=== PATIENT | male | born 1965 | race Caucasian/White ===

== ENCOUNTER 2016-05-22 09:00 | Emergency (ER) | payer OTHER ==
[~2016-05-22] VITALS: Ht 180.3 cm; Wt 63.5 kg
[~2016-05-22 09:00] MED LIST: ALBU0.086 NEB; HYDR-3534 PO; IBUP800 PO; NEUR300C PO; SYMB160A INH; Z.0.OXYGEN INH
[2016-05-22 09:04] VITALS: PULSE 86; RESP 16; TEMP 98.3; O2SAT 96
[2016-05-22] MEDS ORDERED: diphenhydrAMINE HCL 50 MG/ML VIAL IVP ONE (09:15)
[2016-05-22] MEDS ORDERED: PROCHLORPERAZINE INJ 10 MG/2 ML VIAL IVP ONE (09:15)
[2016-05-22] MEDS ORDERED: SODIUM CHLORIDE 0.9% FLUSH 5 ML FLUSH IVF PRN (09:15)
--- NOTE | 2016-05-22 09:27 | RADHPO ---
EXAM DATE/TIME: 05/22/2016 09:19 [place] COMPARISON: CT BRAIN W/O CONTRAST, December 18, 2012, 1:13. INDICATIONS : Cephalgia. RADIATION DOSE: 63.13 CTDIvol (mGy) MEDICAL HISTORY : Seizures. Chronic obstructive pulmonary disease. SURGICAL HISTORY : None. ENCOUNTER: Initial ACUITY: 3 days PAIN SCALE: 8/10 LOCATION: cranial TECHNIQUE: Multiple contiguous axial images were obtained of the head. Using automated exposure control and adj ustment of the mA and/or kV according to patient size, radiation dose was kept as low as reasonably a chievable to obtain optimal diagnostic quality images. FINDINGS: CEREBRUM: The ventricles are normal for age. No evidence of midline shift, mass lesion, hemorrhage or acute in farction. No extra-axial fluid collections are seen. POSTERIOR FOSSA: The cerebellum and brainstem are intact. The 4th ventricle is midline. The cerebellopontine angle i s unremarkable. EXTRACRANIAL: The visualized portion of the orbits is intact. SKULL: The calvaria is intact. No evidence of skull fracture. CONCLUSION: Normal examination. Trinidad Stone MD on May 22, 2016 at 9:25 Board Certified Radiologist. This report was verified electronically.
--- NOTE | 2016-05-22 09:34 | PD ---
HPI . Headache Chief Complaint: Headache Time Seen by Provider: 09:09 Travel History International Travel<30 days: No Contact w/Intl Traveler<30days: No Traveled to known affect area: No History of Present Illness HPI Patient presents with a three-day history of headache. He describes it as a pressure in his head. He states it is associated with blurred vision. He further states that he has had some associated nausea and vomiting. There has been no fever. He has not taken anything for it prior to presentation. He notes no exacerbating or relieving factors. PFSH Past Medical History Arthritis: No Asthma: No Bipolar Disorder: Yes Anxiety: Yes Depression: Yes Heart Rhythm Problems: Yes Cancer: No Cardiovascular Problems: No COPD: Yes (Chronic bronchitis) Cerebrovascular Accident: No Diminished Hearing: No Endocrine: No Gastrointestinal Disorders: Yes GERD: No Genitourinary: No Headaches: No Hiatal Hernia: No Immune Disorder: No Implanted Vascular Access Dvce: No Musculoskeletal: Yes Neurologic: Yes (Neuropathy) Psychiatric: Yes (bipolar) Reproductive: No Respiratory: Yes (CHRONIC BRONCHITIS, COPD) Immunizations Current: Yes Migraines: No Schizophrenia: Yes Seizures: Yes Sleep Apnea: Yes Ulcer: No Tetanus Vaccination: < 5 Years Influenza Vaccination: No Past Surgical History Abdominal Surgery: No Cardiac Surgery: No Ear Surgery: No Endocrine Surgery: No Eye Surgery: No Genitourinary Surgery: No Gynecologic Surgery: No Neurologic Surgery: No Oral Surgery: No Thoracic Surgery: No Other Surgery: Yes Social History Alcohol Use: Yes (daily 2 beers) Tobacco Use: Yes (1/2 ppd) Substance Use: Yes (ALCOHOL) Allergies-Medications (Allergen,Severity, Reaction): Coded Allergies: Bees (Verified Allergy, Severe, Anaphylaxis, 05/22/16) Cat Dander (Verified Allergy, Severe, Anaphylaxis, 05/22/16) Flexeril (Verified Allergy, Severe, SWELLING, 05/22/16) Iodinated Contrast Media (Verified Allergy, Severe, Anaphylaxis, 05/22/16) Seafood (Verified Allergy, Severe, SWELLING, 05/22/16) Shellfish (Verified Allergy, Severe, SWELLS UP, 05/22/16) Codeine (Verified Allergy, Intermediate, RASH, 05/22/16) Reported Meds & Prescriptions Reported Meds & Active Scripts Active Reported [o2 at hs] Tramadol (Tramadol HCl) 50 Mg Tab 100 Mg PO TID PRN Lyrica (Pregabalin) 150 Mg Cap 150 Mg PO TID Trazodone (Trazodone HCl) 100 Mg Tab 100 Mg PO HS Albuterol Neb (Albuterol Sulfate) 2.5 Mg/3 Ml Neb 2.5 Mg NEB Q4HR NEB While awake Symbicort Inh (Budesonide/Formoterol Fumarate) 160-4.5 Mcg/Act Aero 2 Puff INH Q12HR Review of Systems Except as stated in HPI: all other systems reviewed are Neg General / Constitutional: No: Fever, Chills Eyes: Positive: Blurred Vision HENT: Positive: Headaches Gastrointestinal: Positive: Nausea, Vomiting Physical Exam Narrative GENERAL: This is a 50-year-old man who looks much older than his stated age. He is wearing bilateral cam boots. SKIN: Warm and dry. HEAD: Atraumatic. Normocephalic. Positive scalp tenderness. EYES: Pupils equal and round. ENT: No nasal bleeding or discharge. Mucous membranes pink and moist. NECK: Trachea midline. Neck is supple with full range of motion. CARDIOVASCULAR: Regular rate and rhythm. RESPIRATORY: No accessory muscle use. GASTROINTESTINAL: Abdomen soft, non-tender, nondistended. MUSCULOSKELETAL: No obvious deformities. No edema. NEUROLOGICAL: Awake and alert. No obvious cranial nerve deficits. Motor grossly within normal limits. Normal speech. PSYCHIATRIC: Appropriate mood and affect; insight and judgment normal. Data Data Last Documented VS Vital Signs Date Time Temp Pulse Resp B/P Pulse Ox O2 Delivery O2 Flow Rate FiO2 05/22/16 09:19 82 16 97 Room Air 05/22/16 09:[address] Brain W/O Iv Contrast(Rout) (05/22/16 09:09) Iv Access Insert/Monitor (05/22/16 09:09) Sodium Chloride 0.9% Flush (Ns Flush) (05/22/16 09:15) Prochlorperazine Inj (Compazine Inj) (05/22/16 09:15) Diphenhydramine Inj (Benadryl Inj) (05/22/16 09:15) MDM Medical Decision Making Medical Screen Exam Complete: Yes Emergency Medical Condition: Yes Differential Diagnosis Differential diagnosis of headache includes but is not limited to migraine, muscle contraction headache, brain tumor, brain bleed Narrative Course Patient presents for evaluation and treatment of headache associated with blurred vision and nausea. CT of his head is negative. His pain will be treated with Compazine and Benadryl. Headache is improved with Compazine and Benadryl. Diagnosis Primary Impression: Headache Qualified Code: G44.209 - Acute non intractable tension-type headache Scripts Budesonide-Formoterol Inh (Symbicort Inh)160-4.5 Mcg/Act Aero2 Puff INH Q12HR # 1 INHALER Ref 0 Prov:Tamiko Santiago MD 05/22/16 Disposition: DISCHARGE HOME Condition: Stable Tamiko Santiago MD May 22, 2016 09:34
[2016-05-22] MEDS ORDERED: ALBU0.08 NEB (09:43)
[2016-05-22] MEDS ORDERED: TRAZ100T4 PO (09:43)
[2016-05-22] MEDS ORDERED: LYRI150C PO (09:43)
[2016-05-22] MEDS ORDERED: TRAM50TA PO (09:43)
[2016-05-22] MEDS ORDERED: [UNRECOGNIZED DRUG - OTHER] (09:43)
[2016-05-22] MEDS ORDERED: SYMB160A INH ×2 (09:43→09:56)
[2016-05-22 10:51] VITALS: BP 110/72
== END 2016-05-22 10:52 | disposition home or self-care (01) ==
LOC: PHED 09:00
DX: R51 Headache (principal); J44.9 Chronic obstructive pulmonary disease, unspecified
CPT/HCPCS: 70450; 96374; 96375; 99284; J0780; J1200

== ENCOUNTER 2016-06-13 08:30 | Inpatient (IN) | payer OTHER ==
[~2016-06-13] VITALS: Ht 180.3 cm; Wt 67.0 kg
[~2016-06-13 08:30] MED LIST changes: +ALBU0.08 NEB; -ALBU0.086 NEB; -HYDR-3534 PO; -IBUP800 PO; +LYRI150C PO; -NEUR300C PO; +TRAM50TA PO; +TRAZ100T4 PO; -Z.0.OXYGEN INH; +[UNRECOGNIZED DRUG - OTHER]
[2016-06-13 08:38] VITALS: BP 111/70; PULSE 84; RESP 20; TEMP 99.3; O2SAT 97
[2016-06-13] MEDS ORDERED: TERBUTALINE INJ 1 MG/ML AMP SQ ONE (09:00)
[2016-06-13] MEDS ORDERED: LIDOCAINE HCL 1% 50 ML VIAL INFIL ONE (09:15)
[2016-06-13] MEDS ORDERED: PHENYLEPHRINE I-CAVITARY ONE ×2 (09:15)
[2016-06-13] MEDS ORDERED: SODIUM CHLORIDE 0.9% I-CAVITARY ONE ×2 (09:15)
[2016-06-13 09:58] VITALS: BP 116/69; PULSE 87; RESP 18; O2SAT 95
[2016-06-13] MEDS ORDERED: PROPOFOL 200 MG/20 ML AMP IV ONE (10:13)
[2016-06-13] MEDS ORDERED: ONDANSETRON HCL 4 MG/2 ML VIAL IV PUSH ONE ×2 (10:14→10:30)
[2016-06-13] MEDS ORDERED: chlordiazePOXIDE 25 MG CAP PO PRN (10:15)
--- NOTE | 2016-06-13 10:17 | PD ---
HPI Chief Complaint: Complaint Time Seen by Provider: 08:41 Travel History International Travel<30 days: No Contact w/Intl Traveler<30days: No Traveled to known affect area: No History of Present Illness HPI This 50-year-old male says he had an erection for 24 hours. Says he woke up and her actions yesterday and has been present ever since. It is painful. He does take trazodone and admits that his been somewhat erratic taking it. There is no history of trauma. He is confined to a wheelchair due to to severely shattered feet. He fell off scaffolding about 3 years ago. At that time he started to drink heavily and says he is an alcoholic. He's last drink was last night. PFSH Past Medical History Arthritis: No Asthma: No Bipolar Disorder: Yes Anxiety: Yes Depression: Yes Heart Rhythm Problems: Yes Cancer: No Cardiovascular Problems: No COPD: Yes (Chronic bronchitis) Cerebrovascular Accident: No Diminished Hearing: No Endocrine: No Gastrointestinal Disorders: Yes GERD: No Genitourinary: No Headaches: No Hiatal Hernia: No Immune Disorder: No Implanted Vascular Access Dvce: No Musculoskeletal: Yes Neurologic: Yes (Neuropathy) Psychiatric: Yes (bipolar) Reproductive: No Respiratory: Yes (CHRONIC BRONCHITIS, COPD) Immunizations Current: Yes Migraines: No Schizophrenia: Yes Seizures: Yes Sleep Apnea: Yes Ulcer: No Influenza Vaccination: No Past Surgical History Abdominal Surgery: No Cardiac Surgery: No Ear Surgery: No Endocrine Surgery: No Eye Surgery: No Genitourinary Surgery: No Gynecologic Surgery: No Neurologic Surgery: No Oral Surgery: No Thoracic Surgery: No Other Surgery: Yes Social History Alcohol Use: Yes (daily 2 beers) Tobacco Use: Yes (1/2 ppd) Substance Use: Yes (ALCOHOL) Allergies-Medications (Allergen,Severity, Reaction): Coded Allergies: Bees (Verified Allergy, Severe, Anaphylaxis, 06/13/16) Cat Dander (Verified Allergy, Severe, Anaphylaxis, 06/13/16) Flexeril (Verified Allergy, Severe, SWELLING, 06/13/16) Iodinated Contrast Media (Verified Allergy, Severe, Anaphylaxis, 06/13/16) Seafood (Verified Allergy, Severe, SWELLING, 06/13/16) Shellfish (Verified Allergy, Severe, SWELLS UP, 06/13/16) Codeine (Verified Allergy, Intermediate, RASH, 06/13/16) Reported Meds & Prescriptions Reported Meds & Active Scripts Active Symbicort Inh (Budesonide/Formoterol Fumarate) 160-4.5 Mcg/Act Aero 2 Puff INH Q12HR Reported [o2 at hs] Tramadol (Tramadol HCl) 50 Mg Tab 100 Mg PO TID PRN Lyrica (Pregabalin) 150 Mg Cap 150 Mg PO TID Trazodone (Trazodone HCl) 100 Mg Tab 100 Mg PO HS Albuterol Neb (Albuterol Sulfate) 2.5 Mg/3 Ml Neb 2.5 Mg NEB Q4HR NEB While awake Review of Systems General / Constitutional: No: Fever, Chills Eyes: No: Diploplia HENT: No: Headaches, Lightheadedness Cardiovascular: No: Chest Pain or Discomfort, Palpitations Respiratory: No: Cough, Shortness of Breath Gastrointestinal: No: Nausea, Vomiting Genitourinary: No: Urgency, Frequency Musculoskeletal: No: Myalgias Neurologic: Positive: Tremor Psychiatric: Positive: Substance Abuse Hematologic/Lymphatic: No: Easy Bruising Physical Exam Narrative GENERAL well-developed male SKIN: Warm and dry. HEAD: Atraumatic. Normocephalic. EYES: Pupils equal and round. No scleral icterus. No injection or drainage. ENT: No nasal bleeding or discharge. Mucous membranes pink and moist. NECK: Trachea midline. No JVD. CARDIOVASCULAR: Regular rate and rhythm. No murmur appreciated. RESPIRATORY: No accessory muscle use. Clear to auscultation. Breath sounds equal bilaterally. GASTROINTESTINAL: Abdomen soft, non-tender, nondistended. Hepatic and splenic margins not palpable. He does have an erection MUSCULOSKELETAL: No obvious deformities. No clubbing. No cyanosis. No edema. NEUROLOGICAL: Awake and alert. No obvious cranial nerve deficits. Motor grossly within normal limits. Normal speech. Slightly tremulous PSYCHIATRIC: Appropriate mood and affect; insight and judgment normal. Data Data Last Documented VS Vital Signs Date Time Temp Pulse Resp B/P Pulse Ox O2 Delivery O2 Flow Rate FiO2 06/13/16 11:15 18 06/13/16 09:58 87 116/69 95 Room Air 06/13/16 08:38 99.3 Orders Terbutaline Inj (Brethine Inj) (06/13/16 09:00) Lidocaine 1% Inj (50 Ml) (Xylocaine 1% I (06/13/16 09:15) Phenylephrine Inj (Neosynephrine Inj)... (06/13/16 09:15) Chlordiazepoxide (Librium) (06/13/16 10:15) Complete Blood Count With Diff (06/13/16 10:28) Comprehensive Metabolic Panel (06/13/16 10:28) Magnesium (Mg) (06/13/16 10:28) Sodium Chlor 0.9% 1000 Ml Inj (Ns 1000 M (06/13/16 10:30) Ondansetron Inj (Zofran Inj) (06/13/16 10:30) Hydromorphone Pf Inj (Dilaudid Pf Inj) (06/13/16 10:30) Prothrombin Time / Inr (Pt) (06/13/16 10:31) Act Partial Throm Time (Ptt) (06/13/16 10:31) Lorazepam Inj (Ativan Inj) (06/13/16 10:45) Admit Order (Ed Use Only) (06/13/16 11:37) Admit To Inpatient (06/13/16 ) Vital Signs (Adult) Q4H (06/13/16 11:36) Activity Oob Ad Caridad (06/13/16 11:36) Diet Npo (06/13/16 Lunch) Sodium Chlor 0.9% 1000 Ml Inj (Ns 1000 M (06/13/16 11:36) Sodium Chloride 0.9% Flush (Ns Flush) (06/13/16 11:45) Sodium Chloride 0.9% Flush (Ns Flush) (06/13/16 21:00) Acetaminophen (Tylenol) (06/13/16 11:45) Ondansetron Inj (Zofran Inj) (06/13/16 11:45) Magnesium Hydroxide Liq (Milk Of Magnesi (06/13/16 11:45) Scd Bilateral/Knee High NAZARIO.BID (06/13/16 11:36) Acetamin-Hydrocod 325-5 Mg ([place] 5-325 (06/13/16 11:45) Morphine Inj (Morphine Inj) (06/13/16 11:45) Naloxone Inj (Narcan Inj) (06/13/16 11:45) Alcohol Withdrawal Asmt-Ciwa Q4HX18 (06/13/16 11:36) Flumazenil Inj (Romazicon Inj) (06/13/16 11:45) Lorazepam (Ativan) (06/13/16 11:45) Lorazepam Inj (Ativan Inj) (06/13/16 11:45) Lorazepam (Ativan) (06/13/16 11:45) Lorazepam Inj (Ativan Inj) (06/13/16 11:45) Lorazepam Inj (Ativan Inj) (06/13/16 11:45) Lorazepam Inj (Ativan Inj) (06/13/16 11:45) Inpatient Certification (06/13/16 ) Consult Urology (06/13/16 ) Labs Laboratory Tests Test 06/13/16 10:30 White Blood Count 5.1 TH/MM3 Red Blood Count 4.34 MIL/MM3 Hemoglobin 14.0 GM/DL Hematocrit 41.8 % Mean Corpuscular Volume 96.3 FL Mean Corpuscular Hemoglobin 32.2 PG Mean Corpuscular Hemoglobin 33.4 % Concent Red Cell Distribution Width 13.9 % Platelet Count 116 TH/MM3 Mean Platelet Volume 7.6 FL Neutrophils (%) (Auto) 71.5 % Lymphocytes (%) (Auto) 18.9 % Monocytes (%) (Auto) 6.8 % Eosinophils (%) (Auto) 1.6 % Basophils (%) (Auto) 1.2 % Neutrophils # (Auto) 3.6 TH/MM3 Lymphocytes # (Auto) 1.0 TH/MM3 Monocytes # (Auto) 0.3 TH/MM3 Eosinophils # (Auto) 0.1 TH/MM3 Basophils # (Auto) 0.1 TH/MM3 CBC Comment DIFF FINAL Differential Comment Prothrombin Time 10.9 SEC Prothromb Time International 1.0 RATIO Ratio Activated Partial 30.9 SEC Thromboplast Time Sodium Level 141 MEQ/L Potassium Level 3.4 MEQ/L Chloride Level 104 MEQ/L Carbon Dioxide Level 26.6 MEQ/L Anion Gap 10 MEQ/L Blood Urea Nitrogen 7 MG/DL Creatinine 0.65 MG/DL Estimat Glomerular Filtration 131 ML/MIN Rate Random Glucose 98 MG/DL Calcium Level 8.1 MG/DL Magnesium Level 1.7 MG/DL Total Bilirubin 0.6 MG/DL Aspartate Amino Transf 77 U/L (AST/SGOT) Alanine Aminotransferase 51 U/L (ALT/SGPT) Alkaline Phosphatase 64 U/L Total Protein 8.2 GM/DL Albumin 3.2 GM/DL MDM Medical Decision Making Medical Screen Exam Complete: Yes Emergency Medical Condition: Yes Medical Record Reviewed: Yes Differential Diagnosis Differential includes priapism, alcohol withdrawal Narrative Course Bilateral intracavernosal injections were performed and phenylephrine 10 mL injected. There was no response. I spoken with Dr. Pearce and he asked that the patient be transferred to [facility] Procedures Procedure Narrative After verbal consent was obtained 20-gauge butterfly needles were inserted corpora cavernosum bilaterally. Dark blood was aspirated. A total of 10 MLS of 500 g per mL was injected. Diagnosis Primary Impression: Priapism Admitting Information Admitting Physician Requests: Admit Javier Carson MD Jun 13, 2016 10:17
[2016-06-13] MEDS ORDERED: HYDROmorphone HCL PF 1 MG/ML VIAL IV PUSH ONE (10:30)
[2016-06-13] MEDS ORDERED: SODIUM CHLOR 0.9% 1000 ML INJ 1,000 ML IV SCH (10:30)
[2016-06-13 10:45] LABS: AUTOMATED NEUTROPHIL # 3.6 TH/MM3 (1.8-7.7); BASOPHIL # 0.1 TH/MM3 (0-0.2); BASOPHIL % 1.2 % (0.0-2.0); EOSINOPHIL # 0.1 TH/MM3 (0-0.4); EOSINOPHIL % 1.6 % (0.0-4.0); HEMATOCRIT 41.8 % (39.0-51.0); LYMPH % 18.9 % (9.0-44.0); MEAN CELL VOLUME 96.3 FL (80.0-100.0); MEAN CORPUSCULAR HEMOGLOBIN 32.2 PG (27.0-34.0); MEAN CORPUSCULAR HGB CONC 33.4 % (32.0-36.0); MONO % 6.8 % (0.0-8.0); NEUT % 71.5 % (16.0-70.0); PLATELET COUNT 116 TH/MM3 (150-450); RED BLOOD COUNT 4.34 MIL/MM3 (4.50-5.90); RED CELL DISTRIBUTION WIDTH 13.9 % (11.6-17.2); WHITE BLOOD COUNT 5.1 TH/MM3 (4.0-11.0)
[2016-06-13] MEDS ORDERED: LORazepam 2 MG/ML VIAL IV PUSH ONE (10:45)
[2016-06-13 10:48] LABS: HEMO FLAGS DIFF FINAL
[2016-06-13 10:54] LABS: CHLORIDE 104 MEQ/L (98-107); POTASSIUM 3.4 MEQ/L (3.5-5.1); SODIUM (NA) 141 MEQ/L (136-145)
[2016-06-13 10:58] LABS: APTT (PATIENT) 30.9 SEC (24.3-30.1); PROTHROMBIN TIME - PATIENT 10.9 SEC (9.8-11.6)
[2016-06-13 10:59] LABS: ANION GAP 10 MEQ/L (5-15); BICARBONATE 26.6 MEQ/L (21.0-32.0); BLOOD UREA NITROGEN 7 MG/DL (7-18); MAGNESIUM 1.7 MG/DL (1.5-2.5)
[2016-06-13 11:02] LABS: ALT (GPT) 51 U/L (12-78); AST (GOT) 77 U/L (15-37); GLOMERULAR FILTRATION RATE 131 ML/MIN (>89)
[2016-06-13 11:03] LABS: TOTAL BILIRUBIN ADULT 0.6 MG/DL (0.2-1.0)
[2016-06-13 11:04] LABS: ALKALINE PHOSPHATASE 64 U/L (45-117)
[2016-06-13] MEDS ORDERED: SODIUM CHLORIDE 0.9% FLUSH 5 ML FLUSH FLUSH PRN (11:45)
[2016-06-13] MEDS ORDERED: ACETAMINOPHEN 325 MG TAB PO PRN (11:45)
[2016-06-13] MEDS ORDERED: LORazepam 2 MG TAB PO PRN (11:45)
[2016-06-13] MEDS ORDERED: LORazepam 2 MG/ML VIAL IV PUSH PRN ×4 (11:45)
[2016-06-13] MEDS ORDERED: ACETAMINOPHEN/HYDROcodone 325 MG/5 MG TAB PO PRN (11:45)
[2016-06-13] MEDS ORDERED: MAGNESIUM HYDROXIDE SUSP 30 ML CUP PO PRN (11:45)
[2016-06-13] MEDS ORDERED: NALOXONE HCL 0.4 MG/ML AMP IV PRN (11:45)
[2016-06-13] MEDS ORDERED: LORazepam 1 MG TAB PO PRN (11:45)
[2016-06-13] MEDS ORDERED: FLUMAZENIL 0.5 MG/5 ML VIAL IV PUSH PRN (11:45)
[2016-06-13] MEDS ORDERED: ONDANSETRON HCL 4 MG/2 ML VIAL IVP PRN (11:45)
[2016-06-13] MEDS: SODIUM CHLOR 0.9% 1000 ML INJ 1,000 ML IV SCH ×2 (12:28→20:38)
[2016-06-13] MEDS ORDERED: chlordiazePOXIDE 25 MG CAP PO ONE (12:45)
[2016-06-13 13:41] VITALS: BP 103/60; PULSE 74; RESP 16; O2SAT 97
[2016-06-13] MEDS: MORPHINE SULFATE 4 MG/ML INJ IV PRN ×2 (14:59→20:38)
[2016-06-13 15:49] VITALS: BP 109/68; PULSE 72; RESP 16; O2SAT 98
--- NOTE | 2016-06-13 15:58 | HHI.HP ---
[facility] Hospitalists Primary Care Physician No Primary Care Physician Admission Diagnosis PRIAPISM Diagnoses: (1) Priapism (2) Alcohol withdrawal Travel History International Travel<30 Days: No Contact w/Intl Traveler <30 Da: No Traveled to Known Affected Are: No History of Present Illness This is a pleasant 50 year-old female who presents with a 24-hour history of painful erection beginning yesterday. The patient states that he does take trazodone sporadically. He denies taking any Viagra. The patient also drinks beer heavily and states that he starting to feel shaky and like he is withdrawing. He denies history of alcohol hallucinosis or delirium tremens. In the ER the emergency department physician did perform bilateral antral cavernosal injections of phenylephrine however this was unsuccessful in treating the priapism. Therefore Dr. Carson spoke with the urologist litigation paralegal Dr. Pearce who requested that the patient be transferred to [facility] at the main campus and admitted to the hospitalist medically with consultation to him. The patient currently still has the painful erection. He has received Librium and states that the alcohol withdrawal tremors are improving. Review of Systems Constitutional: DENIES: Fever, Chills Ears, nose, mouth, throat: DENIES: Throat pain, Hoarseness Respiratory: COMPLAINS OF: Cough, DENIES: Shortness of breath Cardiovascular: DENIES: Chest pain, Palpitations Gastrointestinal: DENIES: Nausea, Vomiting Genitourinary: DENIES: Urgency, Dysuria Musculoskeletal: DENIES: Joint Swelling, Back pain Neurologic: DENIES: Abnormal gait, Headache Psychiatric: DENIES: Anxiety, Confusion Past Family Social History Past Medical History Chronic pain and bilateral lower extremity after falling off a scaffolding 3 years ago and he wears bilateral walking boots for this Alcoholism Insomnia COPD Reported Medications Allergies Coded Allergies Type Severity Reaction Last Updated Verified Bees Allergy Severe Anaphylaxis 06/13/16 Yes Cat Dander Allergy Severe Anaphylaxis 06/13/16 Yes Flexeril Allergy Severe SWELLING 06/13/16 Yes Iodinated Contrast Media Allergy Severe Anaphylaxis 06/13/16 Yes Seafood Allergy Severe SWELLING 06/13/16 Yes Shellfish Allergy Severe SWELLS UP 06/13/16 Yes Codeine Allergy Intermediate RASH 06/13/16 Yes Active Scripts Medications Dose Route/Sig Days Date Category Dose Instructions Symbicort Inh (Budesonide/Formoterol Fumarate) 160-4.5 Mcg/Act Aero 2 Puff INH Q12HR 05/22/16 Rx [o2 at hs] 05/22/16 Reported Tramadol (Tramadol HCl) 50 Mg Tab 100 Mg PO TID PRN 05/22/16 Reported Lyrica (Pregabalin) 150 Mg Cap 150 Mg PO TID 05/22/16 Reported Trazodone (Trazodone HCl) 100 Mg Tab 100 Mg PO HS 05/22/16 Reported Albuterol Neb (Albuterol Sulfate) 2.5 Mg/3 Ml Neb 2.5 Mg NEB Q4HR NEB 05/22/16 Reported While awake Allergies: Coded Allergies: Bees (Verified Allergy, Severe, Anaphylaxis, 06/13/16) Cat Dander (Verified Allergy, Severe, Anaphylaxis, 06/13/16) Flexeril (Verified Allergy, Severe, SWELLING, 06/13/16) Iodinated Contrast Media (Verified Allergy, Severe, Anaphylaxis, 06/13/16) Seafood (Verified Allergy, Severe, SWELLING, 06/13/16) Shellfish (Verified Allergy, Severe, SWELLS UP, 06/13/16) Codeine (Verified Allergy, Intermediate, RASH, 06/13/16) Family History Reviewed and noncontributory Social History He does smoke tobacco and drinks heavily. Physical Exam Vital Signs Vital Signs Date Time Temp Pulse Resp B/P Pulse Ox O2 Delivery O2 Flow Rate FiO2 06/13/16 15:49 72 16 109/68 98 Room Air 06/13/16 15:26 16 06/13/16 13:41 74 16 103/60 97 Room Air 06/13/16 11:15 18 06/13/16 09:58 87 18 116/69 95 Room Air 06/13/16 08:38 99.3 84 20 111/70 97 Physical Exam GENERAL: Well-nourished, well-developed very pleasant lean middle-aged male patient. SKIN: Warm and dry. HEAD: Normocephalic. EYES: No scleral icterus. No injection or drainage. NECK: Supple, trachea midline. No JVD or lymphadenopathy. CARDIOVASCULAR: Regular rate and rhythm without murmurs, gallops, or rubs. RESPIRATORY: Breath sounds equal bilaterally. No accessory muscle use. GASTROINTESTINAL: Abdomen soft, non-tender, nondistended. Urogenital: He does have an erection, the penis and scrotum is normal in color. EXTREMITIES: No cyanosis, or edema. Feet have walking boots bilaterally. NEUROLOGICAL: Awake, alert, and oriented x 3. Non-focal. He does have fine tremors of the upper extremities. Laboratory Laboratory Tests Test 06/13/16 10:30 White Blood Count 5.1 Red Blood Count 4.34 Hemoglobin 14.0 Hematocrit 41.8 Mean Corpuscular Volume 96.3 Mean Corpuscular Hemoglobin 32.2 Mean Corpuscular Hemoglobin 33.4 Concent Red Cell Distribution Width 13.9 Platelet Count 116 Mean Platelet Volume 7.6 Neutrophils (%) (Auto) 71.5 Lymphocytes (%) (Auto) 18.9 Monocytes (%) (Auto) 6.8 Eosinophils (%) (Auto) 1.6 Basophils (%) (Auto) 1.2 Neutrophils # (Auto) 3.6 Lymphocytes # (Auto) 1.0 Monocytes # (Auto) 0.3 Eosinophils # (Auto) 0.1 Basophils # (Auto) 0.1 CBC Comment DIFF FINAL Differential Comment Prothrombin Time 10.9 Prothromb Time International 1.0 Ratio Activated Partial 30.9 Thromboplast Time Sodium Level 141 Potassium Level 3.4 Chloride Level 104 Carbon Dioxide Level 26.6 Anion Gap 10 Blood Urea Nitrogen 7 Creatinine 0.65 Estimat Glomerular Filtration 131 Rate Random Glucose 98 Calcium Level 8.1 Magnesium Level 1.7 Total Bilirubin 0.6 Aspartate Amino Transf 77 (AST/SGOT) Alanine Aminotransferase 51 (ALT/SGPT) Alkaline Phosphatase 64 Total Protein 8.2 Albumin 3.2 Result Diagram: 06/13/16 1030 06/13/16 1030 Assessment and Plan Assessment and Plan -Priapism - due to trazodone. The patient was advised to discontinue it and he states he has already had his girlfriend fell it away. Unfortunately he did not respond to bilateral cavernosum injection with phenylephrine in the emergency department therefore the patient is being transferred to the [facility] for definitive treatment by urology/Dr. Pearce. We'll continue with pain control. -Mild alcohol withdrawal. We'll continue with the CIWA protocol. -Tobaccoism. Counseled on cessation -Chronic pain. Resume home medications. -DVT prophylaxis to be initiated post surgery. Cannot place SCDs as the patient has bilateral boots on his ankles. Joy Colmenares MD Jun 13, 2016 15:58
--- NOTE | 2016-06-13 18:00 | PD.CONS ---
HPI Service Urology Consult Requested By Reason for Consult Priapism Primary Care Physician No Primary Care Physician Diagnosis: (1) Priapism ICD Code: N48.30 (2) Alcohol withdrawal ICD Code: F10.239 History of Present Illness 50-year-old gentleman with history bipolar disorder managed with trazodone who presented to the emergency room earlier this morning complaining of an erection that has been present for 24 hours. Preliminary management in the emergency room included intracorporeal injection of 500 g phenylephrine without resolution. Patient was advised transfer to the main hospital for further care in the operating room. At the time of consultation the patient continued to have ongoing erection which was quite painful. He denies any prior episodes of priapism. No history of blood disorders. I discussed corporal irrigation and repeat phenylephrine injection under anesthesia. Review of Systems Constitutional: DENIES: Fever, Chills Endocrine: DENIES: Polyuria Respiratory: DENIES: Cough Cardiovascular: DENIES: Chest pain Gastrointestinal: DENIES: Abdominal pain Musculoskeletal: DENIES: Back pain Hematologic/lymphatic: DENIES: Bruising Neurologic: DENIES: Headache Past Family Social History Past Medical History Bipolar disorder Chronic bronchitis COPD Neuropathy Trauma to both feet and is wheelchair-bound Past Surgical History Denies major surgery Reported Medications Refer to EMR Allergies: Coded Allergies: Bees (Verified Allergy, Severe, Anaphylaxis, 06/13/16) Cat Dander (Verified Allergy, Severe, Anaphylaxis, 06/13/16) Flexeril (Verified Allergy, Severe, SWELLING, 06/13/16) Iodinated Contrast Media (Verified Allergy, Severe, Anaphylaxis, 06/13/16) Seafood (Verified Allergy, Severe, SWELLING, 06/13/16) Shellfish (Verified Allergy, Severe, SWELLS UP, 06/13/16) Codeine (Verified Allergy, Intermediate, RASH, 06/13/16) Active Ordered Medications Refer to EMR Family History Reviewed and noncontributory Social History Alcohol consumption of 2 beers daily Smoker of one half pack per day Physical Exam Vital Signs Vital Signs Date Time Temp Pulse Resp B/P Pulse Ox O2 Delivery O2 Flow Rate FiO2 06/13/16 15:49 72 16 109/68 98 Room Air 06/13/16 15:26 16 06/13/16 13:41 74 16 103/60 97 Room Air 06/13/16 11:15 18 06/13/16 09:58 87 18 116/69 95 Room Air 06/13/16 08:38 99.3 84 20 111/70 97 Physical Exam GENERAL: This is a well-nourished, well-developed patient, in no apparent distress. SKIN: No rashes, ecchymoses or lesions. Cool and dry. HEAD: Atraumatic. Normocephalic. No temporal or scalp tenderness. EYES: Pupils equal round and reactive. Extraocular motions intact. No scleral icterus. No injection or drainage. ENT: Nose without bleeding, purulent drainage or septal hematoma. Throat without erythema, tonsillar hypertrophy or exudate. Uvula midline. Airway patent. NECK: Trachea midline. No JVD or lymphadenopathy. Supple, nontender, no meningeal signs. GASTROINTESTINAL: Abdomen soft, non-tender, nondistended. No hepato-splenomegaly , or palpable masses. No guarding. : Erect phallus, testes bilaterally descended MUSCULOSKELETAL: Extremities without clubbing, cyanosis, or edema. No joint tenderness, effusion, or edema noted. No calf tenderness. Negative Homans sign bilaterally. NEUROLOGICAL: Awake and alert. Cranial nerves II through XII intact. Motor and sensory grossly within normal limits. Five out of 5 muscle strength in all muscle groups. Normal speech. Laboratory Laboratory Tests Test 06/13/16 10:30 White Blood Count 5.1 Red Blood Count 4.34 Hemoglobin 14.0 Hematocrit 41.8 Mean Corpuscular Volume 96.3 Mean Corpuscular Hemoglobin 32.2 Mean Corpuscular Hemoglobin 33.4 Concent Red Cell Distribution Width 13.9 Platelet Count 116 Mean Platelet Volume 7.6 Neutrophils (%) (Auto) 71.5 Lymphocytes (%) (Auto) 18.9 Monocytes (%) (Auto) 6.8 Eosinophils (%) (Auto) 1.6 Basophils (%) (Auto) 1.2 Neutrophils # (Auto) 3.6 Lymphocytes # (Auto) 1.0 Monocytes # (Auto) 0.3 Eosinophils # (Auto) 0.1 Basophils # (Auto) 0.1 CBC Comment DIFF FINAL Differential Comment Prothrombin Time 10.9 Prothromb Time International 1.0 Ratio Activated Partial 30.9 Thromboplast Time Sodium Level 141 Potassium Level 3.4 Chloride Level 104 Carbon Dioxide Level 26.6 Anion Gap 10 Blood Urea Nitrogen 7 Creatinine 0.65 Estimat Glomerular Filtration 131 Rate Random Glucose 98 Calcium Level 8.1 Magnesium Level 1.7 Total Bilirubin 0.6 Aspartate Amino Transf 77 (AST/SGOT) Alanine Aminotransferase 51 (ALT/SGPT) Alkaline Phosphatase 64 Total Protein 8.2 Albumin 3.2 Result Diagram: 06/13/16 1030 06/13/16 1030 Assessment and Plan Assessment and Plan Urologic impression: Priapism greater than 24 hours refractory to preliminary management with phenylephrine in the emergency room. Plan: #1 keep patient nothing by mouth #2 bring patient to the operating room suite for vigorous corporeal irrigation under anesthesia and possible repeat injection of phenylephrine Sunny Bright MD Jun 13, 2016 18:00
[2016-06-13] MEDS ORDERED: DO NOT ADM ANY ANTICOAGULANT DRUGS XX PRN (18:58)
[2016-06-13] MEDS ORDERED: PHENYLEPH/NS 1000 MCG/10 ML SYR OTHER ONE (19:10)
--- NOTE | 2016-06-13 19:32 | HHI.PR ---
Immediate Post Op Note Procedure Date: Jun 13, 2016 Pre Op Diagnosis: (1) Priapism Post Op Diagnosis: (1) Priapism Surgeon: Sunny Bright Career Agent(s): None Procedure: Corporeal irrigation and injection of phenylephrine Additional Information: Patient was brought to the operating room suite and placed supine on the OR table. He was next placed under general anesthesia. He was then prepped and draped in normal sterile fashion. After an appropriate timeout was taken by proceeded with irrigation of the right corporal body with 20 cc normal saline. I then evacuated approximately 20 cc of bloody thick fluid. Subsequent to this I injected 200 g of phenylephrine. There was prompt detumescence noted. Then placed a sterile dressing over the irrigation site consisting of sterile gauze wrapped with Coban. The patient tolerated the procedures well and was transferred to the PACU in satisfactory condition. Complications: None Specimen(s) removed: None Estimated blood loss: 20 cc Anesthesia: LMA Drains: None Patient to: PACU Patient Condition: Good Date/Time of Procedure: SEE SURGICAL CARE RECORD Sunny Bright MD Jun 13, 2016 19:32
[2016-06-13] MEDS ORDERED: MIDAZOLAM HCL 2 MG/2 ML VIAL ONE (19:33)
[2016-06-13 20:00] VITALS: BP 149/85; PULSE 63; RESP 19; TEMP 97; O2SAT 97
[2016-06-13] MEDS: SODIUM CHLORIDE 0.9% FLUSH 5 ML FLUSH FLUSH SCH (20:38)
[2016-06-14] VITALS: BP 113/59; PULSE 75; RESP 20; TEMP 98.2; O2SAT 98
[2016-06-14 04:00] VITALS: BP 114/63; PULSE 71; RESP 20; TEMP 98.7; O2SAT 98
[2016-06-14] MEDS: SODIUM CHLOR 0.9% 1000 ML INJ 1,000 ML IV SCH (07:36)
[2016-06-14 08:00] VITALS: BP 134/74; PULSE 55; RESP 17; TEMP 97.7; O2SAT 96
[2016-06-14] MEDS: SODIUM CHLORIDE 0.9% FLUSH 5 ML FLUSH FLUSH SCH (08:43)
--- NOTE | 2016-06-14 09:10 | HHI.PR ---
Subjective Remarks Follow-up for priapism Patient status post irrigation and injection of phenylephrine yesterday. Today , his penis is more flaccid but still moderately erect, pain is better with oral narcotics. Afebrile, no chills. No nausea, vomiting or abdominal pain. Objective Vitals Vital Signs Date Time Temp Pulse Resp B/P Pulse Ox O2 Delivery O2 Flow Rate FiO2 06/14/16 08:00 97.7 55 17 134/74 96 06/14/16 04:00 98.7 71 20 114/63 98 06/14/16 00:00 98.2 75 20 113/59 98 06/13/16 20:00 97.0 63 19 149/85 97 06/13/16 19:59 63 17 130/83 98 Room Air 06/13/16 19:45 65 17 117/58 98 Room Air 06/13/16 19:26 98.3 76 15 110/69 99 Nasal Cannula 3 06/13/16 15:49 72 16 109/68 98 Room Air 06/13/16 15:26 16 06/13/16 13:41 74 16 103/60 97 Room Air 06/13/16 11:15 18 06/13/16 09:58 87 18 116/69 95 Room Air I/O 06/13/16 06/13/16 06/13/16 06/14/16 06/14/16 06/14/16 07:00 15:00 23:00 07:00 15:00 23:00 Intake Total 1210 ml 240 ml Output Total 0 ml 1000 ml Balance 1210 ml -760 ml Intake Oral 360 ml 240 ml IV Total 50 ml Other 800 ml Output Urine Total 0 ml 1000 ml # Bowel Movements 0 0 Result Diagram: 06/13/16 1030 06/13/16 1030 Objective Remarks GENERAL: Well-nourished, well-developed very pleasant lean middle-aged male patient. SKIN: Warm and dry. HEAD: Normocephalic. EYES: No scleral icterus. No injection or drainage. NECK: Supple, trachea midline. No JVD or lymphadenopathy. CARDIOVASCULAR: Regular rate and rhythm without murmurs, gallops, or rubs. RESPIRATORY: Breath sounds equal bilaterally. No accessory muscle use. GASTROINTESTINAL: Abdomen soft, non-tender, nondistended. Urogenital: Moderate erection, nontender, penis and scrotum normal in color. Dressings in place. EXTREMITIES: No cyanosis, or edema. Feet have walking boots bilaterally. NEUROLOGICAL: Awake, alert, and oriented x 3. Non-focal. He does have fine tremors of the upper extremities. Procedures Status post intracorporeal phenylephrine injection. A/P Problem List: (1) Priapism ICD Code: N48.30 Status: Acute (2) Alcohol withdrawal ICD Code: F10.239 Status: Acute Assessment and Plan -Priapism - possibly due to trazodone. Patient has been taking it though for 4 years. Unfortunately he did not respond to bilateral cavernosum injection with phenylephrine in the emergency department, urology was consulted, status post irrigation and corporeal injection of phenylephrine, now better. Continue pain control with oral narcotics. Still with moderate erection. Awaiting urology input. -Mild alcohol withdrawal. We'll continue with the [facility] protocol. -Tobaccoism. Counseled on cessation -Chronic pain. Resume home medications. -DVT prophylaxis to be initiated post surgery. Cannot place SCDs as the patient has bilateral boots on his ankles. Sapna Sawant MD Jun 14, 2016 09:10
[2016-06-14] MEDS ORDERED: HYDR-3516 PO (09:13)
[2016-06-14] MEDS ORDERED: POTASSIUM CHLORIDE 10 MEQ CONTROLLED RELEASE TAB PO ONE (09:15)
--- NOTE | 2016-06-14 09:15 | HHI.DS ---
Discharge Summary Admission Date Jun 13, 2016 at 11:39 Discharge Date: Jun 14, 2016 Admitting Diagnosis PRIAPISM (1) Priapism ICD Code: N48.30 (2) Alcohol withdrawal ICD Code: F10.239 Procedures Status post intracorporeal phenylephrine injection. Brief History - From Admission This is a pleasant 50 year-old female who presents with a 24-hour history of painful erection beginning yesterday. The patient states that he does take trazodone sporadically. He denies taking any Viagra. The patient also drinks beer heavily and states that he starting to feel shaky and like he is withdrawing. He denies history of alcohol hallucinosis or delirium tremens. In the ER the emergency department physician did perform bilateral antral cavernosal injections of phenylephrine however this was unsuccessful in treating the priapism. Therefore Dr. Carson spoke with the urologist senior functional analyst Dr. Pearce who requested that the patient be transferred to [facility] the [facility] and admitted to the hospitalist medically with consultation to him. The patient currently still has the painful erection. He has received Librium and states that the alcohol withdrawal tremors are improving. CBC/BMP: 06/13/16 1030 06/13/16 1030 Significant Findings Laboratory Tests Test 06/13/16 10:30 Red Blood Count 4.34 MIL/MM3 (4.50-5.90) Platelet Count 116 TH/MM3 (150-450) Neutrophils (%) (Auto) 71.5 % (16.0-70.0) Activated Partial 30.9 SEC Thromboplast Time (24.3-30.1) Potassium Level 3.4 MEQ/L (3.5-5.1) Calcium Level 8.1 MG/DL (8.5-10.1) Aspartate Amino Transf 77 U/L (15-37) (AST/SGOT) Albumin 3.2 GM/DL (3.4-5.0) PE at Discharge GENERAL: Well-nourished, well-developed very pleasant lean middle-aged male patient. SKIN: Warm and dry. HEAD: Normocephalic. EYES: No scleral icterus. No injection or drainage. NECK: Supple, trachea midline. No JVD or lymphadenopathy. CARDIOVASCULAR: Regular rate and rhythm without murmurs, gallops, or rubs. RESPIRATORY: Breath sounds equal bilaterally. No accessory muscle use. GASTROINTESTINAL: Abdomen soft, non-tender, nondistended. Urogenital: Moderate erection, nontender, penis and scrotum normal in color. Dressings in place. EXTREMITIES: No cyanosis, or edema. Feet have walking boots bilaterally. NEUROLOGICAL: Awake, alert, and oriented x 3. Non-focal. He does have fine tremors of the upper extremities. Hospital Course This is a 50-year-old male with history of alcohol abuse who presented to the hospital with a painful erection. Patient was diagnosed of priapism possibly secondary to trazodone. Unfortunately he did not respond to bilateral cavernosum injection with phenylephrine in the emergency department, urology was consulted, status post irrigation and corporeal injection of phenylephrine, now better. Continue pain control with oral narcotics. Discussed with urology part of discharge, continue ice pack as needed and remove dressing tomorrow. Continue oral narcotics for pain. Patient cleared for discharge home. Pt Condition on Discharge: Good Discharge Disposition: Discharge Home Discharge Time: > 30 minutes Discharge Instructions DIET: Follow Instructions for: As Tolerated, No Restrictions Activities you can perform: Regular-No Restrictions Follow up Referrals: PCP Follow-up - 1 Week New Medications: Hydrocodone-Acetaminophen (Hydrocodone-Acetaminophen) 5-325 mg Tab 1 TAB PO Q4H PRN PAIN SCALE 3 TO 5 #10 TAB Continued Medications: Albuterol Neb (Albuterol Neb) 2.5 Mg/3 Ml Neb 2.5 MG NEB Q4HR NEB While awake Breathing Treatment #60 Ref 0 NEBULE Budesonide-Formoterol Inh (Symbicort Inh) 160-4.5 Mcg/Act Aero 2 PUFF INH Q12HR #1 Ref 0 INHALER Pregabalin (Lyrica) 150 Mg Cap 150 MG PO TID #90 Ref 0 CAP Tramadol (Tramadol) 50 Mg Tab 100 MG PO TID PRN PAIN Ref 0 TAB ([o2 at hs]) Discontinued Medications: Trazodone (Trazodone) 100 Mg Tab 100 MG PO HS Control Depression #30 Ref 0 TAB Sapna Sawant MD Jun 14, 2016 09:15
== END 2016-06-14 10:55 | disposition home or self-care (01) | DRG 729 ==
LOC: PHED 08:30 → PHEDA 11:39 → N07B 17:34
PROVIDERS: ADMIT Hospitalist; ATTEND Hospitalist
PROC: 3E0N3GC Introduction of Other Therapeutic Substance into Male Reproductive, Percutaneous Approach (ICD-10-PCS; principal; 2016-06-13 18:48)
DX: N48.30 Priapism, unspecified (principal); F10.239 Alcohol dependence with withdrawal, unspecified; G62.9 Polyneuropathy, unspecified; J44.9 Chronic obstructive pulmonary disease, unspecified; F17.210 Nicotine dependence, cigarettes, uncomplicated; T43.215A Adverse effect of selective serotonin and norepinephrine reuptake inhibitors, initial encounter
CPT/HCPCS: 80053; 83735; 85025; 85610; 85730; 96372; 96374; 96375; J1170; J2060; J2250; J2270; J2370; J2405; J3010; J3105; J7030

== ENCOUNTER 2016-11-02 00:10 | Emergency (ER) | payer OTHER ==
[~2016-11-02] VITALS: Ht 180.3 cm; Wt 67.0 kg
[~2016-11-02 00:10] MED LIST changes: +HYDR-3516 PO; -TRAZ100T4 PO
[2016-11-02 01:04] VITALS: BP 138/76; PULSE 90; RESP 18; TEMP 98.4
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
[2016-11-02 02:20] LABS: POTASSIUM 3.5 MEQ/L (3.5-5.1)
[2016-11-02 02:23] LABS: BICARBONATE 24.7 MEQ/L (21.0-32.0)
[2016-11-02 02:30] LABS: AUTOMATED NEUTROPHIL # 4.3 TH/MM3 (1.8-7.7); BASOPHIL % 0.7 % (0.0-2.0); EOSINOPHIL # 0.1 TH/MM3 (0-0.4); EOSINOPHIL % 0.8 % (0.0-4.0); HEMATOCRIT 44.2 % (39.0-51.0); LYMPH % 23.8 % (9.0-44.0); LYMPHOCYTE # 1.5 TH/MM3 (1.0-4.8); MEAN CELL VOLUME 96.1 FL (80.0-100.0); MEAN CORPUSCULAR HGB CONC 33.3 % (32.0-36.0); MONO % 6.7 % (0.0-8.0); PLATELET COUNT 93 TH/MM3 (150-450); WHITE BLOOD COUNT 6.3 TH/MM3 (4.0-11.0)
[2016-11-02 02:33] LABS: HEMO FLAGS AUTO DIFF
[2016-11-02 02:37] VITALS: BP 136/74; PULSE 78; RESP 18; O2SAT 97
[2016-11-02] MEDS ORDERED: IBUP-232 PO (03:01)
[2016-11-02] MEDS ORDERED: HYDR-3533 PO (03:01)
[2016-11-02] MEDS ORDERED: KETOROLAC TROMETHAMINE 30 MG/ML (IVP) VIAL IV PUSH ONE (03:15)
[2016-11-02] MEDS ORDERED: ORPHENADRINE INJ 60 MG/2 ML AMP IM ONE (03:15)
[2016-11-02 03:18] LABS: PLATELET ESTIMATE SMEAR LOW (NORMAL); PLATELET MORPHOLOGY NORMAL (NORMAL); SCAN/DIFF AUTO DIFF CONFIRMED
== END 2016-11-02 03:30 | disposition home or self-care (01) ==
LOC: PHED 00:10
DX: S00.03XA Contusion of scalp, initial encounter (principal); S16.1XXA Strain of muscle, fascia and tendon at neck level, initial encounter; Y09 Assault by unspecified means; J44.9 Chronic obstructive pulmonary disease, unspecified; G47.30 Sleep apnea, unspecified
CPT/HCPCS: 70450; 72125; 80048; 80307; 85025; 96372; 96374; 99285; J1885; J2360

== ENCOUNTER 2017-03-07 16:00 | Emergency (ER) | payer OTHER ==
[~2017-03-07] VITALS: Ht 180.3 cm; Wt 75.0 kg
[~2017-03-07 16:00] MED LIST changes: -ALBU0.08 NEB; -HYDR-3516 PO; -LYRI150C PO
[2017-03-07 16:21] VITALS: BP 120/88; PULSE 77; RESP 16; TEMP 98.5; O2SAT 97
--- NOTE | 2017-03-07 16:29 | PD ---
HPI Chief Complaint: Pain: Acute or Chronic Time Seen by Provider: 16:17 Travel History International Travel<30 days: No Contact w/Intl Traveler<30days: No Traveled to known affect area: No History of Present Illness HPI This patient complains of left ankle pain. He has chronic pain and deformity at both ankles. He is fracture them in the past. He was putting weight on the left ankle this morning and says he felt a pop at the lateral aspect. Had some pain that was worse than usual. He called paramedics who brought him in. There is no real direct trauma to it other than rolling it and hearing a snap. Symptoms severity is moderate. Duration 2 hours. Pain is worse with weightbearing PFSH Past Medical History Arthritis: No Asthma: No Bipolar Disorder: Yes Anxiety: Yes Depression: Yes Heart Rhythm Problems: Yes Cancer: No Cardiovascular Problems: No COPD: Yes (Chronic bronchitis) Cerebrovascular Accident: No Diminished Hearing: No Endocrine: No Gastrointestinal Disorders: Yes GERD: No Genitourinary: No Headaches: No Hiatal Hernia: No Immune Disorder: No Implanted Vascular Access Dvce: No Musculoskeletal: Yes Neurologic: Yes (Neuropathy) Psychiatric: Yes (bipolar) Reproductive: No Respiratory: Yes (CHRONIC BRONCHITIS, COPD) Immunizations Current: Yes Migraines: No Schizophrenia: Yes Seizures: Yes Sleep Apnea: Yes Ulcer: No Past Surgical History Abdominal Surgery: No Cardiac Surgery: No Ear Surgery: No Endocrine Surgery: No Eye Surgery: No Genitourinary Surgery: No Gynecologic Surgery: No Neurologic Surgery: No Oral Surgery: No Thoracic Surgery: No Other Surgery: Yes Social History Alcohol Use: Yes (daily 2 beers) Tobacco Use: Yes (1/2 ppd) Substance Use: Yes (ALCOHOL) Allergies-Medications (Allergen,Severity, Reaction): Coded Allergies: Fish Containing Products (Unverified Allergy, Severe, SWELLING, 03/07/17) Iodinated Contrast- Oral and IV Dye (Unverified Allergy, Severe, Anaphylaxis, 03/07/17) bee venom protein (honey bee) (Unverified Allergy, Severe, Anaphylaxis, ) cat dander (Unverified Allergy, Severe, Anaphylaxis, 03/07/17) cyclobenzaprine (Unverified Allergy, Severe, SWELLING, 03/07/17) shellfish derived (Unverified Allergy, Severe, SWELLS UP, 03/07/17) codeine (Unverified Allergy, Intermediate, RASH, 03/07/17) Reported Meds & Prescriptions Reported Meds & Active Scripts Active Symbicort Inh (Budesonide/Formoterol Fumarate) 160-4.5 Mcg/Act Aero 2 Puff INH Q12HR Reported Ipratropium Neb (Ipratropium [place]) 0.5 Mg/2.5 Ml Amp 0.5 Mg NEB Q6HR NEB Albuterol Neb (Albuterol Sulfate) 0.63 Mg/3 Ml Neb 0.63 Mg NEB Q4HR NEB PRN Lortab (Hydrocodone-Acetaminophen) 10-325 Mg Tab 1 Tab PO Q6H PRN Lyrica (Pregabalin) 150 Mg Cap 150 Mg PO TID [o2 at hs] Review of Systems General / Constitutional: No: Fever HENT: No: Headaches Cardiovascular: No: Chest Pain or Discomfort Respiratory: No: Cough Physical Exam Narrative SKIN: Focused skin assessment reveals no rash or ulcers. Skin is warm and dry. Palpation shows no induration or nodules. GASTROINTESTINAL: Abdomen soft, non-tender, nondistended. Positive bowel sounds. No hepato-splenomegaly, or palpable masses. No guarding. Left ankle: Some chronic enlargement/deformity of the ankle joint. There is no redness or bruising or open wound. It's neurovascularly intact. He is very hypersensitive to light touch siting his neuropathy pain. Data Data Last Documented VS Vital Signs Date Time Temp Pulse Resp B/P (MAP) Pulse Ox O2 Delivery O2 Flow Rate FiO2 03/07/17 16:21 98.5 77 16 120/88 (99) 97 Orders Orders Ankle, Complete ([id number]) (03/07/17 ) [facility] Medical Decision Making Medical Screen Exam Complete: Yes Emergency Medical Condition: Yes Medical Record Reviewed: Yes Differential Diagnosis Ankle fracture, dislocation, contusion Narrative Course I have reviewed the patient's electronic medical record. I reviewed his left ankle x-rays which show chronic arthritic change but no acute fracture or dislocation I gave him a Velcro stirrup splint and discussed supportive care He plans on following up with orthopedist He has a motorized scooter at home Diagnosis Primary Impression: Left ankle sprain Qualified Codes: S93.492A - Sprain of other ligament of left ankle, initial encounter Additional Instructions: Ice and elevate and limit weightbearing on left ankle Follow-up with primary care or orthopedist Med/Other Pt SpecificInfo: Other Disposition: 01 DISCHARGE HOME Condition: Stable Andrew Augustin MD Mar 07, 2017 16:29
[2017-03-07] MEDS ORDERED: ALBU0.63 NEB (16:30)
[2017-03-07] MEDS ORDERED: LYRI150C PO (16:30)
[2017-03-07] MEDS ORDERED: HYDR-3535 PO (16:30)
[2017-03-07] MEDS ORDERED: IPRA0.02 NEB (16:30)
--- NOTE | 2017-03-07 16:53 | RADRPT ---
EXAM DATE/TIME: 03/07/2017 16:39 [facility] COMPARISON: ANKLE LEFT COMPLETE ([id number]), January 24, 2016, 11:49. INDICATIONS : Pain post fall. MEDICAL HISTORY : Broke same ankle 5 years ago. SURGICAL HISTORY : None. ENCOUNTER: Initial ACUITY: 1 day PAIN SCORE: 10/10 LOCATION: Left Ankle. FINDINGS: Comparison is made to prior conventional radiographs in January 2016 which demonstrated chron ic posttraumatic findings including flattening of the superior calcaneus, some heterotopic bone later al to the calcaneus and sclerosis about the calcaneal facets. On today's examination, the deformities of the calcaneus are stable in appearance. The ankle mortise is intact. No fracture in the distal tibia or fibula. No significant soft tissue swelling. CONCLUSION: No acute findings. Lito Leos MD on March 07, 2017 at 16:49 Board Certified Radiologist. This report was verified electronically.
--- NOTE | 2017-03-07 16:53 | RADRPT ---
EXAM DATE/TIME: 03/07/2017 16:39 [facility] COMPARISON: ANKLE LEFT COMPLETE ([id number]), January 24, 2016, 11:49. INDICATIONS : Pain post fall. MEDICAL HISTORY : Broke same ankle 5 years ago. SURGICAL HISTORY : None. ENCOUNTER: Initial ACUITY: 1 day PAIN SCORE: 10/10 LOCATION: Left Ankle. FINDINGS: Comparison is made to prior conventional radiographs in January 2016 which demonstrated chron ic posttraumatic findings including flattening of the superior calcaneus, some heterotopic bone later al to the calcaneus and sclerosis about the calcaneal facets. On today's examination, the deformities of the calcaneus are stable in appearance. The ankle mortise is intact. No fracture in the distal tibia or fibula. No significant soft tissue swelling. CONCLUSION: No acute findings. Lito Leos MD on March 07, 2017 at 16:49 Board Certified Radiologist. This report was verified electronically.
--- NOTE | 2017-03-07 16:53 | RADRPT ---
EXAM DATE/TIME: 03/07/2017 16:39 [facility] COMPARISON: ANKLE LEFT COMPLETE ([id number]), January 24, 2016, 11:49. INDICATIONS : Pain post fall. MEDICAL HISTORY : Broke same ankle 5 years ago. SURGICAL HISTORY : None. ENCOUNTER: Initial ACUITY: 1 day PAIN SCORE: 10/10 LOCATION: Left Ankle. FINDINGS: Comparison is made to prior conventional radiographs in January 2016 which demonstrated chron ic posttraumatic findings including flattening of the superior calcaneus, some heterotopic bone later al to the calcaneus and sclerosis about the calcaneal facets. On today's examination, the deformities of the calcaneus are stable in appearance. The ankle mortise is intact. No fracture in the distal tibia or fibula. No significant soft tissue swelling. CONCLUSION: No acute findings. Lito Leos MD on March 07, 2017 at 16:49 Board Certified Radiologist. This report was verified electronically.
[2017-03-07 18:29] VITALS: BP 116/74
== END 2017-03-07 18:32 | disposition home or self-care (01) ==
LOC: NEPD 16:00
DX: S93.492A Sprain of other ligament of left ankle, initial encounter (principal); F31.9 Bipolar disorder, unspecified; F41.9 Anxiety disorder, unspecified; G62.9 Polyneuropathy, unspecified; J44.9 Chronic obstructive pulmonary disease, unspecified; F17.200 Nicotine dependence, unspecified, uncomplicated; X58.XXXA Exposure to other specified factors, initial encounter; Z79.51 Long term (current) use of inhaled steroids; Z79.899 Other long term (current) drug therapy
CPT/HCPCS: 73610; 99283; L1906

== ENCOUNTER → 2017-04-06 | Outpatient (CLI) | payer OTHER ==
[~2017-04-06] MED LIST changes: +ALBU0.63 NEB; +HYDR-3535 PO; +IPRA0.02 NEB; +LYRI150C PO; -TRAM50TA PO
--- NOTE | 2017-04-06 18:59 | MG ---
cc: JASS LEUNG MD Lab No: Date: 04/06/2017 Age: Sex: M Race: DATE OF STUDY 04/06/2017 EEG RECORD NUMBER [id number] DATE OF 1965 INDICATION A 51-year-old with history of apparently daily seizure. DESCRIPTION A 7-9 Hz posterior rhythm, 20-40 microvolts and anterior beta, theta frequencies with myogenic artifact in the frontal channels. Good driving with photic stimulation. Generalized slowing with transition into drowsy state. Good EEG variability reactivity. Single EKG showing sinus rhythm. INTERPRETATION Normal awake, asleep EEG. Clinical correlation. Jass Leung MD MG/KK /6:23 PM /6:52 PM
== END ==
LOC: HEEG 06:34
DX: G40.911 Epilepsy, unspecified, intractable, with status epilepticus (principal)
CPT/HCPCS: 95819

== ENCOUNTER → 2017-06-22 | Outpatient (CLI) | payer OTHER ==
--- NOTE | 2017-06-22 10:21 | RADRPT ---
EXAM DATE/TIME: 06/22/2017 09:59 [facility] COMPARISON: No previous studies available for comparison. INDICATIONS : Intermittant dysphagia, problems swallowing solids FLUORO TIME: 1.4 minutes IMAGE COUNT: 12 CONTRAST: 1. Liquid E-Z Paque Barium Sulfate (60% w/v, 41% w.w) MEDICAL HISTORY : herniated discs in his neck SURGICAL HISTORY : None. ENCOUNTER: Initial ACUITY: >1 year PAIN SCORE: 0/10 LOCATION: Bilateral neck FINDINGS: Exam is limited because the patient's inability to stand. Rapid sequence films of the cervical esophagus are unremarkable. There is no aspiration. Thoracic esophagus is unremarkable. Gastroesophageal junction is normal. CONCLUSION: Negative limited barium swallow. There is no aspiration or obstruction. Toby Kim MD FACR on June 22, 2017 at 10:17 Board Certified Radiologist. This report was verified electronically.
--- NOTE | 2017-06-22 10:25 | RADRPT ---
EXAM DATE/TIME: 06/22/2017 10:11 [facility] COMPARISON: FOOT LEFT COMPLETE ([id number]), January 24, 2016, 11:46. INDICATIONS : Chronic feet pain, fell off of scaffolding 5 years ago. MEDICAL HISTORY : None. SURGICAL HISTORY : None. ENCOUNTER: Initial ACUITY: >1 year PAIN SCORE: 10/10 LOCATION: Left foot FINDINGS: Three view examination of the left foot demonstrates no soft tissue swelling, dislocation, or fractur e. The tarsal bones appear intact. The interphalangeal and metatarsophalangeal joints are intact. The calcaneus is intact. Bony mineralization is normal. Degenerative changes in the calcaneus. CONCLUSION: Calcaneal degenerative changes, otherwise negative. Toby Kim MD FACR on June 22, 2017 at 10:21 Board Certified Radiologist. This report was verified electronically.
--- NOTE | 2017-06-22 13:03 | RADRPT ---
EXAM DATE/TIME: 06/22/2017 10:44 [facility] COMPARISON: US ABDOMEN - LIVER, May 29, 2015, 8:53. INDICATIONS : Elevated labs. MEDICAL HISTORY : COPD. Schizophrenia. SURGICAL HISTORY : ORIF right wrist. ENCOUNTER: Initial ACUITY: 1 day PAIN SCORE: 0/10 LOCATION: Bilateral upper quadrant MEASUREMENTS: LIVER: 16.4 cm length COMMON DUCT: 3 mm RIGHT KIDNEY: 11.8 x 5.6 x 4.7 cm SPLEEN: 9.0 cm length FINDINGS: LIVER: Diffusely increased hepatic echogenicity without evidence for volume loss, intrahepatic ductal dilata tion or gross focal mass. No ascites. Main portal vein is patent and hepatopedal. COMMON DUCT: No intraluminal mass or stone visualized. GALLBLADDER: Contains no stones, demonstrates no wall thickening or pericholecystic fluid. PANCREAS: The visualized portions are within normal limits. RIGHT KIDNEY: No hydronephrosis, stone or mass. SPLEEN: No focal lesion. CONCLUSION: 1. Diffusely increased hepatic echogenicity without volume loss consistent with medical liver disease versus hepatic steatosis. 1. Harlan Rosales MD on June 22, 2017 at 13:00 Board Certified Radiologist. This report was verified electronically.
--- NOTE | 2017-06-22 14:21 | RADRPT ---
EXAM DATE/TIME: 06/22/2017 10:09 [facility] COMPARISON: FOOT RIGHT COMPLETE ([id number]), January 24, 2016, 11:51. INDICATIONS : Chronic foot pain, fell off of scaffolding 5 years ago. MEDICAL HISTORY : None. SURGICAL HISTORY : None. ENCOUNTER: Initial ACUITY: >1 year PAIN SCORE: 10/10 LOCATION: Right foot FINDINGS: Degenerative changes in the talus and calcaneus worsening calcaneus. There is no acute fracture. CO NCLUSION: Degenerative changes, no acute fracture. Toby Kim MD FACR on June 22, 2017 at 14:17 Board Certified Radiologist. This report was verified electronically.
== END ==
LOC: HRAD 09:31
DX: R94.5 Abnormal results of liver function studies (principal); S99.921A Unspecified injury of right foot, initial encounter; S99.922A Unspecified injury of left foot, initial encounter; X58.XXXA Exposure to other specified factors, initial encounter
CPT/HCPCS: 73630; 74230; 76705

== ENCOUNTER 2017-07-27 17:44 | Emergency (ER) | payer OTHER ==
[~2017-07-27] VITALS: Ht 180.3 cm; Wt 65.0 kg
[2017-07-27 18:14] VITALS: BP 110/62; PULSE 76; RESP 20; TEMP 98; O2SAT 98
--- NOTE | 2017-07-27 18:35 | PD ---
HPI Chief Complaint: Respiratory Symptoms Time Seen by Provider: 18:31 Travel History International Travel<30 days: No Contact w/Intl Traveler<30days: No Traveled to known affect area: No History of Present Illness HPI 51-year-old male patient with history of COPD, presents to the ER today because of shortness of breath for several days, had a syncopal episode today. He has been coughing with greenish phlegm. He denies any fevers, or other issues. Modifying Factors: None Associated Signs & Symptoms: Shortness of breath, syncopal episode Risk Factors: COPD history PFSH Past Medical History Arthritis: No Asthma: No Bipolar Disorder: Yes Anxiety: Yes Depression: Yes Heart Rhythm Problems: Yes Cancer: No Cardiovascular Problems: No High Cholesterol: No Congestive Heart Failure: No COPD: Yes (Chronic bronchitis) Cerebrovascular Accident: No Diabetes: No Diminished Hearing: No Endocrine: No Gastrointestinal Disorders: Yes GERD: No Genitourinary: No Headaches: No Hiatal Hernia: No Hypertension: No Immune Disorder: No Implanted Vascular Access Dvce: No Musculoskeletal: Yes Neurologic: Yes (Neuropathy) Psychiatric: Yes (bipolar) Reproductive: No Respiratory: Yes Immunizations Current: Yes Migraines: No Myocardial Infarction: No Schizophrenia: Yes Seizures: Yes Sleep Apnea: Yes Ulcer: No Past Surgical History Abdominal Surgery: No Cardiac Surgery: No Ear Surgery: No Endocrine Surgery: No Eye Surgery: No Genitourinary Surgery: No Gynecologic Surgery: No Neurologic Surgery: No Oral Surgery: No Thoracic Surgery: No Other Surgery: Yes (penis surgery ) Social History Alcohol Use: Yes (3-4 beers a day) Tobacco Use: Yes (1/2 ppd) Substance Use: No Allergies-Medications (Allergen,Severity, Reaction): Coded Allergies: Fish Containing Products (Unverified Allergy, Severe, SWELLING, 07/27/17) Iodinated Contrast- Oral and IV Dye (Unverified Allergy, Severe, Anaphylaxis, 07/27/17) bee venom protein (honey bee) (Unverified Allergy, Severe, Anaphylaxis, ) cat dander (Unverified Allergy, Severe, Anaphylaxis, 07/27/17) cyclobenzaprine (Unverified Allergy, Severe, SWELLING, 07/27/17) shellfish derived (Unverified Allergy, Severe, SWELLS UP, 07/27/17) codeine (Unverified Allergy, Intermediate, RASH, 07/27/17) Reported Meds & Prescriptions Reported Meds & Active Scripts Active Symbicort Inh (Budesonide/Formoterol Fumarate) 160-4.5 Mcg/Act Aero 2 Puff INH Q12HR Reported Albuterol Neb (Albuterol Sulfate) 0.63 Mg/3 Ml Neb 0.63 Mg NEB Q4HR NEB PRN Lyrica (Pregabalin) 150 Mg Cap 150 Mg PO TID Review of Systems Except as stated in HPI: all other systems reviewed are Neg Physical Exam Narrative GENERAL: Well-developed middle-age male patient currently in mild distress. Awake and oriented 3. SKIN: Focused skin assessment warm/dry. HEAD: Atraumatic. Normocephalic. EYES: Pupils equal and round. No scleral icterus. No injection or drainage. ENT: No nasal bleeding or discharge. Mucous membranes pink and moist. NECK: Trachea midline. No JVD. CARDIOVASCULAR: Regular rate and rhythm. No murmur appreciated. RESPIRATORY: No accessory muscle use. Equal but decreased throughout. Breath sounds equal bilaterally. GASTROINTESTINAL: Abdomen soft, non-tender, nondistended. Hepatic and splenic margins not palpable. MUSCULOSKELETAL: No obvious deformities. No clubbing. No cyanosis. No edema. NEUROLOGICAL: Awake and alert. No obvious cranial nerve deficits. Motor grossly within normal limits. Normal speech. PSYCHIATRIC: Appropriate mood and affect; insight and judgment normal. Data Data Last Documented VS Vital Signs Date Time Temp Pulse Resp B/P (MAP) Pulse Ox O2 Delivery O2 Flow Rate FiO2 07/27/17 18:42 98 Nasal Cannula 2.00 07/27/17 18:15 76 2 07/27/17 18:14 98.0 110/62 (78) Orders Orders Complete Blood Count With Diff (07/27/17 18:31) Comprehensive Metabolic Panel (07/27/17 18:31) B-Type Natriuretic Peptide (07/27/17 18:31) Iv Access Insert/Monitor (07/27/17 18:31) Electrocardiogram (07/27/17 18:31) Ecg Monitoring (07/27/17 18:31) Oximetry (07/27/17 18:31) Oxygen Administration (07/27/17 18:31) Chest, Single Ap (07/27/17 18:31) Sodium Chloride 0.9% Flush (Ns Flush) (07/27/17 18:45) Albuterol-Ipratropium Neb (Duoneb Neb) (07/27/17 18:45) Labs Laboratory Tests Test 07/27/17 18:45 [facility] Medical Decision Making Medical Screen Exam Complete: Yes Emergency Medical Condition: Yes Medical Record Reviewed: Yes Interpretation(s) EKG shows NSR, no ST elevation or depression, and no arrhythmias. No significant T-wave inversions. Differential Diagnosis COPD exacerbation versus pneumonia versus dysrhythmias versus dehydration versus metabolic issues Narrative Course Patient was initiated on nebulizers and workup was initiated including chest x- ray. Physician Communication Physician Communication Case is signed out to Dr. Pelayo at 7:20 PM pending workup. Disposition based on workup. Diagnosis Primary Impression: Syncope Carleen Lee MD Jul 27, 2017 18:35
[2017-07-27] MEDS ORDERED: SODIUM CHLORIDE 0.9% FLUSH 10 ML FLUSH IVF PRN (18:45)
--- NOTE | 2017-07-27 19:18 | RADRPT ---
EXAM DATE/TIME: 07/27/2017 18:37 [facility] COMPARISON: No previous studies available for comparison. INDICATIONS : Shortness of breath. MEDICAL HISTORY : None. SURGICAL HISTORY : None. ENCOUNTER: Initial ACUITY: 1 day PAIN SCORE: 0/10 LOCATION: Bilateral chest FINDINGS: A single view of the chest demonstrates the lungs to be symmetrically aerated without evidence of mas s, infiltrate or effusion. The cardiomediastinal contours are unremarkable. Osseous structures are intact. CONCLUSION: 1. No active disease. No effusion or pneumothorax. Luke Giles MD on July 27, 2017 at 19:16 Board Certified Radiologist. This report was verified electronically.
[2017-07-27] MEDS ORDERED: methylPREDNISolone SOD SUCC 125 MG/2 ML VIAL IV PUSH ONE (19:30)
[2017-07-27 19:33] LABS: ALBUMIN 3.8 GM/DL (3.4-5.0); AST (GOT) 44 U/L (15-37); BICARBONATE 21.3 MEQ/L (21.0-32.0); BLOOD UREA NITROGEN 2 MG/DL (7-18); CALCIUM 8.6 MG/DL (8.5-10.1); CHLORIDE 105 MEQ/L (98-107); CREATININE 0.56 MG/DL (0.60-1.30); GLOMERULAR FILTRATION RATE 155 ML/MIN (>89); GLUCOSE,RANDOM 103 MG/DL (74-106); SODIUM (NA) 138 MEQ/L (136-145)
[2017-07-27 19:34] LABS: ALT (GPT) 54 U/L (12-78)
[2017-07-27 19:36] LABS: ALKALINE PHOSPHATASE 54 U/L (45-117); TOTAL BILIRUBIN ADULT 0.3 MG/DL (0.2-1.0); TOTAL PROTEIN 8.1 GM/DL (6.4-8.2)
[2017-07-27] MEDS: RESP: ALBUTEROL 2.5 MG/IPRATROPIUM 0.5 MG NEB (SCH) INH ×2 (19:41→19:42)
--- NOTE | 2017-07-27 20:54 | RADRPT ---
EXAM DATE/TIME: 07/27/2017 20:29 [facility] COMPARISON: No previous studies available for comparison. INDICATIONS : Seizures today. RADIATION DOSE: 56.35 CTDIvol (mGy) MEDICAL HISTORY : Seizures. Chronic obstructive pulmonary disease. SURGICAL HISTORY : None. ENCOUNTER: Initial ACUITY: 1 day PAIN SCALE: 0/10 LOCATION: Bilateral head TECHNIQUE: Multiple contiguous axial images were obtained of the head. Using automated exposure control and adj ustment of the mA and/or kV according to patient size, radiation dose was kept as low as reasonably a chievable to obtain optimal diagnostic quality images. DICOM format image data is available electro nically for review and comparison. FINDINGS: CEREBRUM: The ventricles are normal for age. No evidence of midline shift, mass lesion, hemorrhage or acute in farction. No extra-axial fluid collections are seen. POSTERIOR FOSSA: The cerebellum and brainstem are intact. The 4th ventricle is midline. The cerebellopontine angle i s unremarkable. EXTRACRANIAL: The visualized portion of the orbits is intact. SKULL: The calvaria is intact. No evidence of skull fracture. CONCLUSION: 1. No acute intracranial abnormalities. Luke Giles MD on July 27, 2017 at 20:50 Board Certified Radiologist. This report was verified electronically.
[2017-07-27 21:06] LABS: AUTOMATED NEUTROPHIL # 1.9 TH/MM3 (1.8-7.7); BASOPHIL % 0.3 % (0.0-2.0); EOSINOPHIL # 0.1 TH/MM3 (0-0.4); EOSINOPHIL % 1.6 % (0.0-4.0); HEMATOCRIT 45.2 % (39.0-51.0); HEMOGLOBIN 15.5 GM/DL (13.0-17.0); LYMPH % 43.7 % (9.0-44.0); LYMPHOCYTE # 1.9 TH/MM3 (1.0-4.8); MEAN CORPUSCULAR HEMOGLOBIN 34.4 PG (27.0-34.0); MEAN CORPUSCULAR HGB CONC 34.4 % (32.0-36.0); MONO % 10.6 % (0.0-8.0); MONOCYTE # 0.5 TH/MM3 (0-0.9); NEUT % 43.8 % (16.0-70.0); PLATELET COUNT 129 TH/MM3 (150-450); RED BLOOD COUNT 4.52 MIL/MM3 (4.50-5.90); RED CELL DISTRIBUTION WIDTH 13.9 % (11.6-17.2); WHITE BLOOD COUNT 4.3 TH/MM3 (4.0-11.0)
--- NOTE | 2017-07-27 22:56 | RADRPT ---
EXAM DATE/TIME: 07/27/2017 22:11 [facility] COMPARISON: No previous studies available for comparison. INDICATIONS : Shortness of breath for two days. DOSE: 8.8 mCi Tc99m MAA IV 0.63 mCi Tc99m DTPA aerosol MEDICAL HISTORY : Chronic obstructive pulmonary disease. SURGICAL HISTORY : None. ENCOUNTER: Initial ACUITY: 2 days PAIN SCALE: 0/10 LOCATION: chest TECHNIQUE: Following five minutes of tidal breathing of DTPA aerosol, planar images of the lungs were performed in eight projections. The patient was then injected with MAA, and eight-view perfusion scan was perf ormed. FINDINGS: There is a homogeneous pattern of aerosol delivery to the periphery of both lungs. No focal ventilat ory defects are seen. The perfusion lung scan demonstrates a homogenous pattern of uptake in both lungs. No segmental or s ubsegmental defects are seen. CONCLUSION: Negative for pulmonary embolism. Luke Giles MD on July 27, 2017 at 22:53 Board Certified Radiologist. This report was verified electronically.
--- NOTE | 2017-07-27 23:03 | PD ---
Physical Exam Date Seen by Provider: Jul 27, 2017 Time Seen by Provider: 23:01 Narrative 51-year-old male came to the emergency room for syncopal episode and some cough. Patient was seen by the previous ER physician. Please refer to her history and physical for further details. Sign out was to follow-up on the blood test results and CAT scan of the head. CT scan of the head is negative. D-dimer was slightly elevated based on which a VQ scan was ordered since patient is allergic to IV dye. He is here just came back as negative for PE. At this point I am comfortable discharging him home since all his blood work has come back negative. Data Data Last Documented VS Orders Orders Complete Blood Count With Diff (07/27/17 18:31) Comprehensive Metabolic Panel (07/27/17 18:31) B-Type Natriuretic Peptide (07/27/17 18:31) Iv Access Insert/Monitor (07/27/17 18:31) Electrocardiogram (07/27/17 18:31) Ecg Monitoring (07/27/17 18:31) Oximetry (07/27/17 18:31) Oxygen Administration (07/27/17 18:31) Chest, Single Ap (07/27/17 18:31) Sodium Chloride 0.9% Flush (Ns Flush) (07/27/17 18:45) Albuterol-Ipratropium Neb (Duoneb Neb) (07/27/17 18:45) Methylprednisolone So Succ Inj (Solumedr (07/27/17 19:30) D-Dimer (07/27/17 19:28) Ct Brain W/O Iv Contrast(Rout) (07/27/17 ) Ventilation & Perfusion Scan (07/27/17 ) Troponin I (07/27/17 21:42) Ed Discharge Order (07/27/17 23:03) Labs Laboratory Tests Test 07/27/17 18:45 07/27/17 19:23 07/27/17 20:35 Blood Urea Nitrogen 2 MG/DL Creatinine 0.56 MG/DL Random Glucose 103 MG/DL Total Protein 8.1 GM/DL Albumin 3.8 GM/DL Calcium Level 8.6 MG/DL Alkaline Phosphatase 54 U/L Aspartate Amino Transf (AST/SGOT) 44 U/L Alanine Aminotransferase (ALT/SGPT) 54 U/L Total Bilirubin 0.3 MG/DL Sodium Level 138 MEQ/L Potassium Level 3.4 MEQ/L Chloride Level 105 MEQ/L Carbon Dioxide Level 21.3 MEQ/L Anion Gap 12 MEQ/L Estimat Glomerular Filtration Rate 155 ML/MIN Troponin I LESS THAN 0.02 NG/ML B-Type Natriuretic Peptide 31 PG/ML D-Dimer Quantitative (PE/DVT) 0.83 MG/L FEU White Blood Count 4.3 TH/MM3 Red Blood Count 4.52 MIL/MM3 Hemoglobin 15.5 GM/DL Hematocrit 45.2 % Mean Corpuscular Volume 100.0 FL Mean Corpuscular Hemoglobin 34.4 PG Mean Corpuscular Hemoglobin Concent 34.4 % Red Cell Distribution Width 13.9 % Platelet Count 129 TH/MM3 Mean Platelet Volume 8.0 FL Neutrophils (%) (Auto) 43.8 % Lymphocytes (%) (Auto) 43.7 % Monocytes (%) (Auto) 10.6 % Eosinophils (%) (Auto) 1.6 % Basophils (%) (Auto) 0.3 % Neutrophils # (Auto) 1.9 TH/MM3 Lymphocytes # (Auto) 1.9 TH/MM3 Monocytes # (Auto) 0.5 TH/MM3 Eosinophils # (Auto) 0.1 TH/MM3 Basophils # (Auto) 0.0 TH/MM3 CBC Comment DIFF FINAL Differential Comment MDM Supervised Visit with JOHNNY: No Diagnosis Primary Impression: Syncope Qualified Codes: R55 - Syncope and collapse Referrals: Primary Care Physician Additional Instruction: Up with her primary care. Return to the ER if condition worsens or any other new concerns. Med/Other Pt SpecificInfo: No Change to Meds Disposition: 01 DISCHARGE HOME Condition: Stable Jagjit Pelayo MD Jul 27, 2017 23:03
--- NOTE | 2017-07-28 08:45 | EKG ---
Date Performed: 07/27/2017 Time Performed: 18:13:06 PTAGE: 51 years EKG: Sinus rhythm POSSIBLE RIGHT VENTRICULAR CONDUCTION DELAY ABNORMAL ECG PREVIOUS TRACING : 09/11/2015 14.41 No significant change from previous tracing noted. DOCTOR: Bonifacio Henson Interpretating Date/Time 07/28/2017 08:37:29
== END 2017-07-28 09:48 | disposition home or self-care (01) ==
LOC: NEPE 17:44 → NEDAMB 07-28 09:48
DX: R55 Syncope and collapse (principal); R06.02 Shortness of breath; R94.31 Abnormal electrocardiogram [ECG] [EKG]; R79.1 Abnormal coagulation profile; J44.9 Chronic obstructive pulmonary disease, unspecified; F31.9 Bipolar disorder, unspecified; F41.9 Anxiety disorder, unspecified; F20.9 Schizophrenia, unspecified; F17.200 Nicotine dependence, unspecified, uncomplicated
CPT/HCPCS: 70450; 71045; 78582; 80053; 83880; 84484; 85025; 85379; 93005; 94640; 94664; 96374; 99285; A9540; A9567; J2930

== ENCOUNTER 2017-08-17 15:59 | Emergency (ER) | payer OTHER ==
[~2017-08-17] VITALS: Ht 180.3 cm; Wt 64.0 kg
[~2017-08-17 15:59] MED LIST changes: -HYDR-3535 PO; -IPRA0.02 NEB; -[UNRECOGNIZED DRUG - OTHER]
[2017-08-17 16:13] VITALS: BP 111/73; PULSE 92; RESP 17; TEMP 98.1; O2SAT 100
[2017-08-17 19:14] LABS: AUTOMATED NEUTROPHIL # 1.8 TH/MM3 (1.8-7.7); EOSINOPHIL # 0.1 TH/MM3 (0-0.4); EOSINOPHIL % 1.9 % (0.0-4.0); HEMATOCRIT 42.7 % (39.0-51.0); HEMOGLOBIN 14.8 GM/DL (13.0-17.0); LYMPH % 31.9 % (9.0-44.0); LYMPHOCYTE # 1.1 TH/MM3 (1.0-4.8); MEAN CELL VOLUME 99.9 FL (80.0-100.0); MEAN CORPUSCULAR HEMOGLOBIN 34.6 PG (27.0-34.0); MEAN CORPUSCULAR HGB CONC 34.7 % (32.0-36.0); MEAN PLATELET VOLUME 7.9 FL (7.0-11.0); MONO % 11.1 % (0.0-8.0); MONOCYTE # 0.4 TH/MM3 (0-0.9); NEUT % 54.1 % (16.0-70.0); PLATELET COUNT 139 TH/MM3 (150-450); RED BLOOD COUNT 4.27 MIL/MM3 (4.50-5.90); RED CELL DISTRIBUTION WIDTH 14.1 % (11.6-17.2); WHITE BLOOD COUNT 3.4 TH/MM3 (4.0-11.0)
--- NOTE | 2017-08-17 19:44 | PD ---
HPI Chief Complaint: Seizure Time Seen by Provider: 19:44 Travel History International Travel<30 days: No Contact w/Intl Traveler<30days: No Traveled to known affect area: No History of Present Illness HPI 51-year-old male with history of alcoholism presents to emergency department following a seizure. Patient states this was witnessed. He did not have incontinence nor did he bite his tongue. States he has had seizures in the past but has not been started on any medication for this. He has been evaluated by neurology and other specialists who allegedly tell him "nothing is wrong with him." Patient states he did strike his head during the seizure. Denies any nausea vomiting. No focal deficits weakness. No other symptoms to report. PFSH Past Medical History Arthritis: No Asthma: No Bipolar Disorder: Yes Anxiety: Yes Depression: Yes Heart Rhythm Problems: Yes Cancer: No Cardiovascular Problems: No High Cholesterol: No Congestive Heart Failure: No COPD: Yes (Chronic bronchitis) Cerebrovascular Accident: No Diabetes: No Diminished Hearing: No Endocrine: No Gastrointestinal Disorders: Yes GERD: No Genitourinary: No Headaches: No Hiatal Hernia: No Hypertension: No Immune Disorder: No Implanted Vascular Access Dvce: No Musculoskeletal: Yes Neurologic: Yes (Neuropathy) Psychiatric: Yes (bipolar) Reproductive: No Respiratory: Yes Immunizations Current: Yes Migraines: No Myocardial Infarction: No Schizophrenia: Yes Seizures: Yes Sleep Apnea: Yes Ulcer: No Past Surgical History Abdominal Surgery: No Cardiac Surgery: No Ear Surgery: No Endocrine Surgery: No Eye Surgery: No Genitourinary Surgery: No Gynecologic Surgery: No Neurologic Surgery: No Oral Surgery: No Thoracic Surgery: No Other Surgery: Yes (penis surgery ) Social History Alcohol Use: Yes (3-4 beers a day) Tobacco Use: Yes (1/2 ppd) Substance Use: No Allergies-Medications (Allergen,Severity, Reaction): Coded Allergies: Fish Containing Products (Unverified Allergy, Severe, SWELLING, 07/27/17) Iodinated Contrast- Oral and IV Dye (Unverified Allergy, Severe, Anaphylaxis, 07/27/17) bee venom protein (honey bee) (Unverified Allergy, Severe, Anaphylaxis, ) cat dander (Unverified Allergy, Severe, Anaphylaxis, 07/27/17) cyclobenzaprine (Unverified Allergy, Severe, SWELLING, 07/27/17) shellfish derived (Unverified Allergy, Severe, SWELLS UP, 07/27/17) codeine (Unverified Allergy, Intermediate, RASH, 07/27/17) Reported Meds & Prescriptions Reported Meds & Active Scripts Active Symbicort Inh (Budesonide/Formoterol Fumarate) 160-4.5 Mcg/Act Aero 2 Puff INH Q12HR Reported Pantoprazole (Pantoprazole Sodium) 40 Mg Tab 40 Mg PO DAILY Albuterol Neb (Albuterol Sulfate) 0.63 Mg/3 Ml Neb 0.63 Mg NEB Q4HR NEB PRN Lyrica (Pregabalin) 150 Mg Cap 150 Mg PO TID Review of Systems Except as stated in HPI: all other systems reviewed are Neg Physical Exam Narrative GENERAL: 51-year-old male, well-nourished, in no acute distress. SKIN: Focused skin assessment warm/dry. HEAD: Atraumatic. Normocephalic. EYES: Pupils equal and round. No scleral icterus. No injection or drainage. EOMI ENT: No nasal bleeding or discharge. Mucous membranes pink and moist. DENTAL: No loose or chipped teeth. No malocclusion. NECK: Trachea midline. No JVD. CARDIOVASCULAR: Regular rate and rhythm. No murmur appreciated. RESPIRATORY: No accessory muscle use. Clear to auscultation. Breath sounds equal bilaterally. GASTROINTESTINAL: Abdomen soft, non-tender, nondistended. Hepatic and splenic margins not palpable. MUSCULOSKELETAL: No obvious deformities. No clubbing. No cyanosis. No edema. NEUROLOGICAL: Awake and alert. No obvious cranial nerve deficits. Motor grossly within normal limits. Normal speech. Data Data Last Documented VS Vital Signs Date Time Temp Pulse Resp B/P (MAP) Pulse Ox O2 Delivery O2 Flow Rate FiO2 08/17/17 23:09 08/17/17 22:14 70 18 98 08/17/17 20:43 Room Air 08/17/17 16:13 98.1 Orders Orders Complete Blood Count With Diff (08/17/17 18:02) Comprehensive Metabolic Panel (08/17/17 18:02) Magnesium (Mg) (08/17/17 18:02) Thyroid Stimulating Hormone (08/17/17 18:02) Alcohol (Ethanol) (08/17/17 18:02) Salicylates (Aspirin) (08/17/17 18:02) Tylenol (Acetaminophen) (08/17/17 18:02) Ct Brain W/O Iv Contrast(Rout) (08/17/17 ) Ed Discharge Order (08/17/17 23:10) Labs Laboratory Tests Test 08/17/17 18:35 White Blood Count 3.4 TH/MM3 Red Blood Count 4.27 MIL/MM3 Hemoglobin 14.8 GM/DL Hematocrit 42.7 % Mean Corpuscular Volume 99.9 FL Mean Corpuscular Hemoglobin 34.6 PG Mean Corpuscular Hemoglobin Concent 34.7 % Red Cell Distribution Width 14.1 % Platelet Count 139 TH/MM3 Mean Platelet Volume 7.9 FL Neutrophils (%) (Auto) 54.1 % Lymphocytes (%) (Auto) 31.9 % Monocytes (%) (Auto) 11.1 % Eosinophils (%) (Auto) 1.9 % Basophils (%) (Auto) 1.0 % Neutrophils # (Auto) 1.8 TH/MM3 Lymphocytes # (Auto) 1.1 TH/MM3 Monocytes # (Auto) 0.4 TH/MM3 Eosinophils # (Auto) 0.1 TH/MM3 Basophils # (Auto) 0.0 TH/MM3 CBC Comment DIFF FINAL Differential Comment Blood Urea Nitrogen 6 MG/DL Creatinine 0.71 MG/DL Random Glucose 113 MG/DL Total Protein 8.8 GM/DL Albumin 4.1 GM/DL Calcium Level 8.2 MG/DL Magnesium Level 1.9 MG/DL Alkaline Phosphatase 56 U/L Aspartate Amino Transf (AST/SGOT) 47 U/L Alanine Aminotransferase (ALT/SGPT) 40 U/L Total Bilirubin 0.2 MG/DL Sodium Level 142 MEQ/L Potassium Level 3.4 MEQ/L Chloride Level 111 MEQ/L Carbon Dioxide Level 23.0 MEQ/L Anion Gap 8 MEQ/L Estimat Glomerular Filtration Rate 118 ML/MIN Thyroid Stimulating Hormone 3rd Gen 1.590 uIU/ML Salicylates Level 6.6 MG/DL Acetaminophen Level LESS THAN 2.0 MCG/ML Ethyl Alcohol Level 271 MG/DL [facility] Medical Decision Making Medical Screen Exam Complete: Yes Emergency Medical Condition: Yes Medical Record Reviewed: Yes Differential Diagnosis Alcohol withdrawal seizure versus breakthrough seizure versus electrolyte abnormality Narrative Course 51-year-old male presents emergency department for evaluation of seizure-like activity. Patient is not postictal in the room with me. He is awake, alert, oriented 3. He moves all extremities well. No focal deficits or weakness. No obvious injury. Laboratory Tests Test 08/17/17 18:35 White Blood Count 3.4 TH/MM3 Red Blood Count 4.27 MIL/MM3 Hemoglobin 14.8 GM/DL Hematocrit 42.7 % Mean Corpuscular Volume 99.9 FL Mean Corpuscular Hemoglobin 34.6 PG Mean Corpuscular Hemoglobin Concent 34.7 % Red Cell Distribution Width 14.1 % Platelet Count 139 TH/MM3 Mean Platelet Volume 7.9 FL Neutrophils (%) (Auto) 54.1 % Lymphocytes (%) (Auto) 31.9 % Monocytes (%) (Auto) 11.1 % Eosinophils (%) (Auto) 1.9 % Basophils (%) (Auto) 1.0 % Neutrophils # (Auto) 1.8 TH/MM3 Lymphocytes # (Auto) 1.1 TH/MM3 Monocytes # (Auto) 0.4 TH/MM3 Eosinophils # (Auto) 0.1 TH/MM3 Basophils # (Auto) 0.0 TH/MM3 CBC Comment DIFF FINAL Differential Comment Blood Urea Nitrogen 6 MG/DL Creatinine 0.71 MG/DL Random Glucose 113 MG/DL Total Protein 8.8 GM/DL Albumin 4.1 GM/DL Calcium Level 8.2 MG/DL Magnesium Level 1.9 MG/DL Alkaline Phosphatase 56 U/L Aspartate Amino Transf (AST/SGOT) 47 U/L Alanine Aminotransferase (ALT/SGPT) 40 U/L Total Bilirubin 0.2 MG/DL Sodium Level 142 MEQ/L Potassium Level 3.4 MEQ/L Chloride Level 111 MEQ/L Carbon Dioxide Level 23.0 MEQ/L Anion Gap 8 MEQ/L Estimat Glomerular Filtration Rate 118 ML/MIN Thyroid Stimulating Hormone 3rd Gen 1.590 uIU/ML Salicylates Level 6.6 MG/DL Acetaminophen Level LESS THAN 2.0 MCG/ML Ethyl Alcohol Level 271 MG/DL Last Impressions Head CT 08/17/17 0000 Signed Impressions: Service Date/Time: Thursday, August 17, 2017 20:22 - CONCLUSION: Normal examination for a patient of this age. No significant change has occurred. Luke Giles MD Findings are reviewed and discussed with my attending physician. Patient will be discharged home once he has a safe manner transportation home. Diagnosis Primary Impression: Seizure Additional Impression: Alcohol abuse Referrals: [facility] (Out patient) Patient Instructions: Alcohol Withdrawal (ED), General Instructions Additional Instructions: Follow-up with the primary care provider Return immediately with any acute worsening symptoms Disposition: 01 DISCHARGE HOME Condition: Stable Юлия Richards Aug 17, 2017 19:44
[2017-08-17 19:49] LABS: ALBUMIN 4.1 GM/DL (3.4-5.0); ALKALINE PHOSPHATASE 56 U/L (45-117); ALT (GPT) 40 U/L (12-78); AST (GOT) 47 U/L (15-37); BLOOD UREA NITROGEN 6 MG/DL (7-18); CALCIUM 8.2 MG/DL (8.5-10.1); CHLORIDE 111 MEQ/L (98-107); CREATININE 0.71 MG/DL (0.60-1.30); GLOMERULAR FILTRATION RATE 118 ML/MIN (>89); GLUCOSE,RANDOM 113 MG/DL (74-106); MAGNESIUM 1.9 MG/DL (1.5-2.5); SODIUM (NA) 142 MEQ/L (136-145); TOTAL BILIRUBIN ADULT 0.2 MG/DL (0.2-1.0); TOTAL PROTEIN 8.8 GM/DL (6.4-8.2)
[2017-08-17] MEDS ORDERED: PANT40TA3 PO (19:49)
[2017-08-17 19:52] LABS: ACETAMINOPHEN LESS THAN 2.0 MCG/ML (10.0-30.0)
[2017-08-17 20:43] VITALS: BP 120/74; PULSE 69; RESP 18; O2SAT 99
--- NOTE | 2017-08-17 20:47 | RADRPT ---
EXAM DATE/TIME: 08/17/2017 20:22 [facility] COMPARISON: CT BRAIN W/O CONTRAST, July 27, 2017, 20:29. INDICATIONS : Possible seizure today. RADIATION DOSE: 35.73 CTDIvol (mGy) MEDICAL HISTORY : Seizures. Chronic obstructive pulmonary disease. SURGICAL HISTORY : None. ENCOUNTER: Initial ACUITY: 1 day PAIN SCALE: 5/10 LOCATION: Bilateral head TECHNIQUE: Multiple contiguous axial images were obtained of the head. Using automated exposure control and adj ustment of the mA and/or kV according to patient size, radiation dose was kept as low as reasonably a chievable to obtain optimal diagnostic quality images. DICOM format image data is available electro nically for review and comparison. FINDINGS: CEREBRUM: The ventricles are normal for age. No evidence of midline shift, mass lesion, hemorrhage or acute in farction. No extra-axial fluid collections are seen. POSTERIOR FOSSA: The cerebellum and brainstem are intact. The 4th ventricle is midline. The cerebellopontine angle i s unremarkable. EXTRACRANIAL: The visualized portion of the orbits is intact. SKULL: The calvaria is intact. No evidence of skull fracture. CONCLUSION: Normal examination for a patient of this age. No significant change has occurred. Luke Giles MD on August 17, 2017 at 20:44 Board Certified Radiologist. This report was verified electronically.
[2017-08-17 22:14] VITALS: BP 120/76; PULSE 70; RESP 18; O2SAT 98
== END 2017-08-18 00:01 | disposition home or self-care (01) ==
LOC: NEDAMB 15:59 → NEPD 08-18 00:01
DX: R56.9 Unspecified convulsions (principal); F10.10 Alcohol abuse, uncomplicated; F17.200 Nicotine dependence, unspecified, uncomplicated; Y90.8 Blood alcohol level of 240 mg/100 ml or more; Z79.899 Other long term (current) drug therapy
CPT/HCPCS: 70450; 80053; 80307; 83735; 84443; 85025

== ENCOUNTER 2017-09-15 19:19 | Inpatient (IN) | payer OTHER ==
[~2017-09-15] VITALS: Ht 180.3 cm; Wt 63.6 kg
[~2017-09-15 19:19] MED LIST changes: +PANT40TA3 PO
[2017-09-15 19:25] VITALS: BP 172/97; PULSE 54; RESP 20; TEMP 98.3; O2SAT 97
--- NOTE | 2017-09-15 19:49 | RADRPT ---
EXAM DATE/TIME: 09/15/2017 19:33 [facility] COMPARISON: CHEST SINGLE AP, July 27, 2017, 18:37. INDICATIONS : Cough. MEDICAL HISTORY : Seizures. Chronic obstructive pulmonary disease SURGICAL HISTORY : None. ENCOUNTER: Initial ACUITY: 1 day PAIN SCORE: 3/10 LOCATION: Bilateral chest FINDINGS: A single view of the chest demonstrates a mild left perihilar soft tissue. The right lung is clear. N o effusion is seen. The cardiomediastinal contours are unremarkable. Osseous structures are intact. CONCLUSION: Suspected mild left perihilar consolidation. Pino Kenny MD on September 15, 2017 at 19:46 Board Certified Radiologist. This report was verified electronically.
[2017-09-15] MEDS ORDERED: SODIUM CHLOR 0.9% 1000 ML INJ 1,000 ML IV ONE (20:00)
[2017-09-15] MEDS ORDERED: ONDANSETRON HCL 4 MG/2 ML VIAL IV ONE (20:00)
--- NOTE | 2017-09-15 20:05 | PD ---
HPI Chief Complaint: Syncope/Near-Syncope Time Seen by Provider: 19:31 Travel History International Travel<30 days: No Contact w/Intl Traveler<30days: No Traveled to known affect area: No History of Present Illness HPI The patient is a 51 year old male who presents to the [facility] emergency department with a history of falling last night around 8 PM. His fiance assisted him up and back into bed. He reports that he hit his head, however he is unsure if he lost consciousness. He reports that he has difficulty walking related to neuropathy. He reports that he lost his balance when he was getting off of the toilet and fell into the shower. This AM he awoke with a headache over bilateral eye brows. His headache was worse with sitting up, therefore he laid down all day. He has had n/v too many times to count. He denies having any diarrhea. He last moved his bowels today. He is a daily alcohol drinker. He has not had any alcohol since 7 PM last night. He is tremulous. He has neck pain. He has a history of chronic neck pain due to a problem with 3 discs in his neck. On review of systems otherwise, the patient denies having any known recent fevers, worsening cough or congestion, chest pain, new numbness or tingling of his extremities, or new weakness of his extremities. He denies having any abdominal pain. The patient does report having shortness of breath, however he reports that this is chronic shortness of breath related to COPD. [facility] Past Medical History Narrative Medical The patient's past medical history is significant for weakness in his legs due to an accident 5 years ago when he fell off scaffolding and broke both feet, carpal tunnel syndrome bilaterally, neuropathy- in pain management on Lyrica, COPD, anxiety and depression. No PCP. Bipolar Disorder: Yes Anxiety: Yes Depression: Yes Heart Rhythm Problems: Yes Cardiovascular Problems: No High Cholesterol: No COPD: Yes (Chronic bronchitis) Cerebrovascular Accident: No Diabetes: No Diminished Hearing: No Gastrointestinal Disorders: Yes Musculoskeletal: Yes Neurologic: Yes (Neuropathy) Psychiatric: Yes (bipolar) Respiratory: Yes Immunizations Current: Yes Schizophrenia: Yes Seizures: Yes Sleep Apnea: Yes Tetanus Vaccination: < 5 Years Influenza Vaccination: Yes Past Surgical History Narrative Surgical The patient's past surgical history is significant for the penile surgery. Other Surgery: Yes (penis surgery ) Social History Alcohol Use: Yes (3-4 beers a day) Tobacco Use: Yes (1/2 ppd) Substance Use: No Allergies-Medications (Allergen,Severity, Reaction): Coded Allergies: Fish Containing Products (Unverified Allergy, Severe, SWELLING, 07/27/17) Iodinated Contrast- Oral and IV Dye (Unverified Allergy, Severe, Anaphylaxis, 07/27/17) bee venom protein (honey bee) (Unverified Allergy, Severe, Anaphylaxis, ) cat dander (Unverified Allergy, Severe, Anaphylaxis, 07/27/17) cyclobenzaprine (Unverified Allergy, Severe, SWELLING, 07/27/17) shellfish derived (Unverified Allergy, Severe, SWELLS UP, 07/27/17) codeine (Unverified Allergy, Intermediate, RASH, 07/27/17) Reported Meds & Prescriptions Reported Meds & Active Scripts Active Symbicort Inh (Budesonide/Formoterol Fumarate) 160-4.5 Mcg/Act Aero 2 Puff INH Q12HR Reported Pantoprazole (Pantoprazole Sodium) 40 Mg Tab 40 Mg PO DAILY Albuterol Neb (Albuterol Sulfate) 0.63 Mg/3 Ml Neb 0.63 Mg NEB Q4HR NEB PRN Lyrica (Pregabalin) 150 Mg Cap 150 Mg PO TID Review of Systems Except as stated in HPI: all other systems reviewed are Neg General / Constitutional: No: Fever Eyes: No: Visual changes HENT: Positive: Headaches, Neck Pain, No: Neck Stiffness Cardiovascular: No: Chest Pain or Discomfort Respiratory: Positive: Shortness of Breath (Chronic shortness of breath related to COPD) Gastrointestinal: Positive: Nausea, Vomiting, No: Abdominal Pain Genitourinary: No: Dysuria Musculoskeletal: No: Pain Skin: No Rash Neurologic: Positive: Paresthesia, No: Weakness, Focal Abnormalities, Change in Mentation, Slurred Speech, Sensory Disturbance Psychiatric: No: Depression Endocrine: No: Polydipsia Hematologic/Lymphatic: No: Easy Bruising Physical Exam Narrative General: The patient is a well-developed, thin appearing male, tremulous on my arrival to the room. Head and Neck exam: Head is normocephalic atraumatic. Eyes: EOMI, pupils are equal round and reactive to light. Nose: Midline septum with pink mucous membranes Mouth: Dentition unremarkable. Moist mucus membranes. Posterior oropharynx is not erythematous. No tonsillar hypertrophy. Uvula midline. Airway patent. Neck: Trachea is midline. The patient has a cervical collar in place. Cardiovascular: Sinus bradycardia in the 50 without murmurs, gallops, or rubs. No pulse deficit to the extremities on simultaneous auscultation and palpation of his radial artery. Lungs: Clear to auscultation bilaterally. No wheezes, rhonchi, or rales. Abdomen: Soft, without tenderness to palpation in all 4 quadrants of the abdomen. No guarding, rebound, or rigidity. Normal bowel sounds are audible. No tenderness on palpation of McBurney's point. Negative Sutherland sign. Extremities: No clubbing, cyanosis, or edema. 2+ pulses in all 4 extremities. No calf tenderness on palpation. Back: No spinous process tenderness to palpation. No costovertebral angle tenderness to palpation. Neurologic Exam: Cranial nerves 2-12 were intact on exam. Strength is 5/5 in all 4 extremities. No sensory deficits noted. The patient is very tremulous on exam. No asterixis. Skin Exam: No rash noted. Intact skin that is warm and dry. Data Data Last Documented VS Vital Signs Date Time Temp Pulse Resp B/P (MAP) Pulse Ox O2 Delivery O2 Flow Rate FiO2 09/15/17 20:30 60 155/87 (109) 97 Room Air 09/15/17 19:25 98.3 20 Orders Orders Electrocardiogram (09/15/17 19:32) Complete Blood Count With Diff (09/15/17 19:32) Comprehensive Metabolic Panel (09/15/17 19:32) Creatine Kinase (Cpk) (09/15/17 19:32) Ckmb (Isoenzyme) Profile (09/15/17 19:32) Troponin I (09/15/17 19:32) B-Type Natriuretic Peptide (09/15/17 19:32) Prothrombin Time / Inr (Pt) (09/15/17 19:32) Act Partial Throm Time (Ptt) (09/15/17 19:32) Lipase (09/15/17 19:32) Urinalysis - C+S If Indicated (09/15/17 19:32) Magnesium (Mg) (09/15/17 19:32) Ammonia (5/8/18 19:32) Thyroid Stimulating Hormone (09/15/17 19:32) Chest, Single Ap (09/15/17 19:32) Ct Brain W/O Iv Contrast(Rout) (09/15/17 19:32) Iv Access Insert/Monitor (09/15/17 19:32) Ecg Monitoring (09/15/17 19:32) Oximetry (09/15/17 19:32) Ct Cerv Spine W/O Contrast (09/15/17 19:32) Sodium Chlor 0.9% 1000 Ml Inj (Ns 1000 M (09/15/17 20:00) Ondansetron Inj (Zofran Inj) (09/15/17 20:00) Lorazepam Inj (Ativan Inj) (09/15/17 20:45) Thiamine Inj (Thiamine Inj) (09/15/17 20:45) CKMB (09/15/17 19:56) CKMB% (09/15/17 19:56) Admit Order (Ed Use Only) (09/15/17 22:20) Labs Laboratory Tests Test 09/15/17 19:56 White Blood Count 3.8 TH/MM3 Red Blood Count 4.75 MIL/MM3 Hemoglobin 16.6 GM/DL Hematocrit 48.0 % Mean Corpuscular Volume 101.0 FL Mean Corpuscular Hemoglobin 35.0 PG Mean Corpuscular Hemoglobin Concent 34.6 % Red Cell Distribution Width 14.4 % Platelet Count 51 TH/MM3 Mean Platelet Volume 9.3 FL Neutrophils (%) (Auto) 69.7 % Lymphocytes (%) (Auto) 16.1 % Monocytes (%) (Auto) 13.6 % Eosinophils (%) (Auto) 0.2 % Basophils (%) (Auto) 0.4 % Neutrophils # (Auto) 2.7 TH/MM3 Lymphocytes # (Auto) 0.6 TH/MM3 Monocytes # (Auto) 0.5 TH/MM3 Eosinophils # (Auto) 0.0 TH/MM3 Basophils # (Auto) 0.0 TH/MM3 CBC Comment AUTO DIFF Differential Total Cells Counted 100 Neutrophils % (Manual) 70 % Band Neutrophils % 7 % Lymphocytes % 10 % Monocytes % 12 % Basophils % 1 % Neutrophils # (Manual) 2.9 TH/MM3 Differential Comment FINAL DIFF MANUAL Atypical Lymphocytes % Platelet Estimate LOW Platelet Morphology Comment ENLARGED Prothrombin Time 10.7 SEC Prothromb Time International Ratio 1.1 RATIO Activated Partial Thromboplast Time 30.7 SEC Blood Urea Nitrogen 6 MG/DL Creatinine 0.82 MG/DL Random Glucose 158 MG/DL Total Protein 9.1 GM/DL Albumin 4.1 GM/DL Calcium Level 9.1 MG/DL Magnesium Level 1.7 MG/DL Alkaline Phosphatase 81 U/L Aspartate Amino Transf (AST/SGOT) 78 U/L Alanine Aminotransferase (ALT/SGPT) 56 U/L Total Bilirubin 0.9 MG/DL Sodium Level 141 MEQ/L Potassium Level 3.7 MEQ/L Chloride Level 103 MEQ/L Carbon Dioxide Level 26.1 MEQ/L Anion Gap 12 MEQ/L Estimat Glomerular Filtration Rate 100 ML/MIN Ammonia 27 MCMOL/L Total Creatine Kinase 150 U/L Creatine Kinase MB 0.6 NG/ML Troponin I LESS THAN 0.02 NG/ML B-Type Natriuretic Peptide 160 PG/ML Lipase 203 U/L Thyroid Stimulating Hormone 3rd Gen 1.910 uIU/ML MDM Medical Decision Making Medical Screen Exam Complete: Yes Emergency Medical Condition: Yes Medical Record Reviewed: Yes Differential Diagnosis Intracranial hemorrhage, versus concussion, versus alcohol withdrawal syndrome, versus electrolyte derangements, versus dehydration, versus hepatic encephalopathy Narrative Course During the course of the patient's emergency department visit, the patient's history, examination, and differential diagnosis were reviewed with the patient. The patient was placed on a phototypesetting equipment monitor with oximetry and frequent blood pressure monitoring. The patient had IV access obtained and blood work sent for analysis. The patient had an EKG done on arrival that shows a sinus bradycardia heart rate of 55, QRS duration is 104 ms, QTC 480 ms. The patient appears to have peaked T waves in V3 V4, T-wave inversions in V1, no acute ST segment elevation. The patient was initially provided Normal saline 1 L IV fluid bolus, Zofran 4 mg IV, Ativan 1 mg IV, thiamine 100 mg IV. The patient's studies were reviewed and remarkable for A white count of 3.8, hemoglobin 16.6, MCV elevated at 101, platelets 51, monocytes 13.6. CMP is remarkable for BUN of 6, glucose 158, AST 78, cardiac enzymes within normal limits, BNP 160, total protein 9.1, lipase 203, TSH 1.91, ammonia level 27. PT PTT are 10.7 and 30.7 respectively. Urine drug screen is negative, urinalysis shows 30 protein 40 ketones for urobilinogen, 9 RBCs, otherwise unremarkable. The patient's chest x-ray showed a mild left perihilar infiltrate, CT scan of the brain shows no acute abnormality. CT scan of the C-spine shows no acute abnormality, chronic degenerative changes and disc changes are noted. The patient's results were discussed with the patient, including the plan of care. I explained that further testing and/ or monitoring is indicated based on the patient's history, examination, and/ or laboratory findings. Therefore, I recommended admission for additional evaluation. The patient expressed understanding and was agreeable with this plan. The patient was admitted to the hospital in stable condition and sent to a [facility]. Physician Communication Physician Communication The patient's case including history, pertinent physical examination findings, and laboratory studies were discussed with Dr. Alonzo. It was agreed that the patient would be admitted to the [facility] service. Diagnosis Primary Impression: Head injury Qualified Codes: S09.90XA - Unspecified injury of head, initial encounter Additional Impression: Alcohol withdrawal Qualified Codes: F10.230 - Alcohol dependence with withdrawal, uncomplicated Admitting Information Admitting Physician Requests: Coretta Ang MD September 15, 2017 20:05
[2017-09-15 20:30] VITALS: BP 155/87; PULSE 60; O2SAT 97
[2017-09-15 20:36] LABS: INTERNATIONAL NORMALIZED RATIO 1.1 RATIO; PROTHROMBIN TIME - PATIENT 10.7 SEC (9.8-11.6)
[2017-09-15 20:38] LABS: ALBUMIN 4.1 GM/DL (3.4-5.0); AST (GOT) 78 U/L (15-37); BICARBONATE 26.1 MEQ/L (21.0-32.0); BLOOD UREA NITROGEN 6 MG/DL (7-18); CALCIUM 9.1 MG/DL (8.5-10.1); CHLORIDE 103 MEQ/L (98-107); CREATININE 0.82 MG/DL (0.60-1.30); GLOMERULAR FILTRATION RATE 100 ML/MIN (>89); GLUCOSE,RANDOM 158 MG/DL (74-106); MAGNESIUM 1.7 MG/DL (1.5-2.5); SODIUM (NA) 141 MEQ/L (136-145)
[2017-09-15 20:40] LABS: AUTOMATED NEUTROPHIL # 2.7 TH/MM3 (1.8-7.7); BASOPHIL % 0.4 % (0.0-2.0); EOSINOPHIL % 0.2 % (0.0-4.0); HEMOGLOBIN 16.6 GM/DL (13.0-17.0); LYMPH % 16.1 % (9.0-44.0); LYMPHOCYTE # 0.6 TH/MM3 (1.0-4.8); MEAN CORPUSCULAR HGB CONC 34.6 % (32.0-36.0); MEAN PLATELET VOLUME 9.3 FL (7.0-11.0); MONO % 13.6 % (0.0-8.0); MONOCYTE # 0.5 TH/MM3 (0-0.9); NEUT % 69.7 % (16.0-70.0); PLATELET COUNT 51 TH/MM3 (150-450); RED BLOOD COUNT 4.75 MIL/MM3 (4.50-5.90); RED CELL DISTRIBUTION WIDTH 14.4 % (11.6-17.2); WHITE BLOOD COUNT 3.8 TH/MM3 (4.0-11.0)
[2017-09-15] MEDS ORDERED: LORazepam 2 MG/ML VIAL IV PUSH ONE (20:45)
[2017-09-15] MEDS ORDERED: THIAMINE INJ 100 MG in SODIUM CHLORIDE 0.9% INJ 100 ML IV ONE (20:45)
--- NOTE | 2017-09-15 20:46 | RADRPT ---
EXAM DATE/TIME: 09/15/2017 20:14 [facility] COMPARISON: CT BRAIN W/O CONTRAST, August 17, 2017, 20:22. INDICATIONS : Trauma, fall. Dizziness. RADIATION DOSE: 33.39 CTDIvol (mGy) MEDICAL HISTORY : Seizures. Cardiovascular disease Chronic obstructive pulmonary disease. SURGICAL HISTORY : None. ENCOUNTER: Initial ACUITY: 2 days PAIN SCALE: 4/10 LOCATION: cranial TECHNIQUE: Multiple contiguous axial images were obtained of the head. Using automated exposure control and adj ustment of the mA and/or kV according to patient size, radiation dose was kept as low as reasonably a chievable to obtain optimal diagnostic quality images. DICOM format image data is available electro nically for review and comparison. FINDINGS: CEREBRUM: The ventricles are normal for age. No evidence of midline shift, mass lesion, hemorrhage or acute in farction. No extra-axial fluid collections are seen. POSTERIOR FOSSA: The cerebellum and brainstem are intact. The 4th ventricle is midline. The cerebellopontine angle i s unremarkable. EXTRACRANIAL: The visualized portion of the orbits is intact. There is chronic sclerosis at the right mastoid air c ells. SKULL: The calvaria is intact. No evidence of skull fracture. CONCLUSION: No acute disease. Pino Kenny MD on September 15, 2017 at 20:43 Board Certified Radiologist. This report was verified electronically.
[2017-09-15 20:50] LABS: ALKALINE PHOSPHATASE 81 U/L (45-117); ALT (GPT) 56 U/L (12-78); TOTAL BILIRUBIN ADULT 0.9 MG/DL (0.2-1.0); TOTAL PROTEIN 9.1 GM/DL (6.4-8.2); TROPONIN I LESS THAN 0.02 NG/ML (0.02-0.05)
--- NOTE | 2017-09-15 20:52 | RADRPT ---
EXAM DATE/TIME: 09/15/2017 20:14 [place] COMPARISON: CT CERVICAL SPINE W/O CONTRAST, November 02, 2016, 1:34. INDICATIONS : Trauma, fall. RADIATION DOSE: 17.18 CTDIvol (mGy) MEDICAL HISTORY : Seizures. Cardiovascular disease Chronic obstructive pulmonary disease. SURGICAL HISTORY : None. ENCOUNTER: Initial ACUITY: 2 days PAIN SCALE: 0/10 LOCATION: neck TECHNIQUE: Volumetric scanning of the cervical spine was performed. Multiplanar reconstructions in the sagittal, coronal and oblique axial planes were performed. Using automated exposure control and adjustment o f the mA and/or kV according to patient size, radiation dose was kept as low as reasonably achievable to obtain optimal diagnostic quality images. DICOM format image data is available electronically f or review and comparison. FINDINGS: VERTEBRAE: Normal vertebral body height. ALIGNMENT: No evidence of subluxation. C2-C3: The bony spinal canal is normal in size. No evidence of disc bulge or herniation. The neural forami na are bilaterally patent. There is mild facet hypertrophy. C3-C4: The bony spinal canal is normal in size. No evidence of disc bulge or herniation. The neural forami na are bilaterally patent. There is mild uncovertebral hypertrophy. C4-C5: The disc demonstrates decreased height. A significant impression on the thecal sac is not seen. There is minimal posterior osteophytic ridging. There is mild uncovertebral hypertrophy. Anterior osteophy tania are seen. The neural foramina are patent bilaterally. C5-C6: The disc demonstrates decreased height. There is a moderate left lateral recess disc protrusion. This was present previously. Mild posterior osteophytes are seen. There is uncovertebral hypertrophy. The re is mild facet hypertrophy. There is mild narrowing of the left neural foramina. The right neural f oramina is patent. C6-C7: The disc demonstrates decreased height. There is moderate disc bulge and posterior osteophytic ridgin g. There is uncovertebral hypertrophy. There is narrowing of the left neural foramina. The bony spina l canal is normal in size. No evidence of disc bulge or herniation. The neural foramina are bilater ally patent. C7-T1: The bony spinal canal is normal in size. No evidence of disc bulge or herniation. The neural forami na are bilaterally patent. CONCLUSION: 1. No acute abnormality seen. 2. Chronic degenerative change and disc changes as described above. Pino Kenny MD on September 15, 2017 at 20:44 Board Certified Radiologist. This report was verified electronically.
[2017-09-15 21:49] LABS: BANDS 7 % (0-6); BASOPHILS 1 % (0-2); LYMPHOCYTES 10 % (9-44); MONOCYTES 12 % (0-8); NEUTROPHIL # MANUAL DIFF 2.9 TH/MM3 (1.8-7.7); POLYS (SEG NEUTROPHILS) 70 % (16-70)
[2017-09-15] MEDS ORDERED: LORazepam 2 MG/ML VIAL IV PUSH PRN ×4 (23:00)
[2017-09-15] MEDS ORDERED: SODIUM CHLORIDE 0.9% FLUSH 10 ML FLUSH IV FLUSH PRN (23:00)
[2017-09-15] MEDS ORDERED: FLUMAZENIL 0.5 MG/5 ML VIAL IV PUSH PRN (23:00)
[2017-09-15] MEDS ORDERED: THIAMINE HCL 100 MG TAB PO ONE (23:00)
[2017-09-15] MEDS ORDERED: LORazepam 2 MG TAB PO PRN (23:00)
[2017-09-15 23:34] VITALS: BP 170/86; PULSE 84; RESP 18; TEMP 98.8; O2SAT 97
[2017-09-16] MEDS: POTASSIUM CHLORIDE INJ 10 MEQ in DEXT 5%-NACL 0.9% 1000 ML INJ 1,000 ML IV SCH ×2 (00:18→12:24)
[2017-09-16] MEDS: LORazepam 1 MG TAB PO PRN ×3 (00:22→09:22)
[2017-09-16] MEDS ORDERED: DOCUSATE SODIUM 50 MG/SENNA 8.6 MG TAB PO ONE (02:15)
[2017-09-16] MEDS ORDERED: RESP: ALBUTEROL 0.63 MG/3 ML NEB (PRN) NEB (02:15)
[2017-09-16] MEDS ORDERED: MAGNESIUM HYDROXIDE SUSP 30 ML CUP PO ONE (02:15)
--- NOTE | 2017-09-16 02:17 | HHI.HP ---
[facility] Primary Care Physician No Primary Care Physician Admission Diagnosis intractable vomiting withdrawal syndrome Diagnoses: Travel History International Travel<30 Days: No Contact w/Intl Traveler <30 Da: No Traveled to Known Affected Are: No History of Present Illness 51-year-old male who presents due to intractable vomiting with nonbloody emesis today. He said he fell and hit his head last night, however is on certain of the circumstances. Patient says he drinks 4 beers a day, however denies any history of withdrawal, however says that alcohol does help with his bilateral tremors. He denies any cough or shortness of breath. Patient does report subjective fevers. Denies any dysuria. Denies any cough. He reports dizziness, which is described as feeling off balance. Denies room spinning. He does report sharp neck pain with movement of the neck. CT cervical spine with no acute findings. Review of Systems Except as stated in HPI: all other systems reviewed are Neg Past Family Social History Past Medical History COPD Bilateral peripheral neuropathy. 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 Alcoholism Insomnia Past Surgical History Patient denies any surgeries Reported Medications Reported Meds & Active Scripts Active Symbicort Inh (Budesonide/Formoterol Fumarate) 160-4.5 Mcg/Act Aero 2 Puff INH Q12HR Reported Pantoprazole (Pantoprazole Sodium) 40 Mg Tab 40 Mg PO DAILY Albuterol Neb (Albuterol Sulfate) 0.63 Mg/3 Ml Neb 0.63 Mg NEB Q4HR NEB PRN Lyrica (Pregabalin) 150 Mg Cap 150 Mg PO TID Allergies: Coded Allergies: Fish Containing Products (Unverified Allergy, Severe, SWELLING, 07/27/17) Iodinated Contrast- Oral and IV Dye (Unverified Allergy, Severe, Anaphylaxis, 07/27/17) bee venom protein (honey bee) (Unverified Allergy, Severe, Anaphylaxis, ) cat dander (Unverified Allergy, Severe, Anaphylaxis, 07/27/17) cyclobenzaprine (Unverified Allergy, Severe, SWELLING, 07/27/17) shellfish derived (Unverified Allergy, Severe, SWELLS UP, 07/27/17) codeine (Unverified Allergy, Intermediate, RASH, 07/27/17) Family History Reviewed with the patient and found to be currently noncontributory Social History Patient smoked one half pack per day since age 13. Patient says he drinks about 4 drinks of beer per day. Then mentions 18 packs. Denies any illicit drugs. Physical Exam Vital Signs Vital Signs Date Time Temp Pulse Resp B/P (MAP) Pulse Ox O2 Delivery O2 Flow Rate FiO2 09/15/17 23:34 98.8 84 18 170/86 (114) 97 09/15/17 20:30 60 155/87 (109) 97 Room Air 09/15/17 20:30 60 155/87 (109) 97 Room Air 09/15/17 19:25 98.3 54 20 172/97 (122) 97 Physical Exam GENERAL: This is a well-nourished, well-developed patient, bilateral tremors. Patient is oriented to the fact that he is in the hospital, disoriented to month , oriented to year. SKIN: No rashes, ecchymoses or lesions. Cool and dry. HEAD: Atraumatic. Normocephalic. No temporal or scalp tenderness. EYES: Pupils equal round and reactive. Extraocular motions intact. No scleral icterus. No injection or drainage. ENT: Nose without bleeding, purulent drainage or septal hematoma. Throat without erythema, tonsillar hypertrophy or exudate. Uvula midline. Airway patent. NECK: Trachea midline. No JVD or lymphadenopathy. Supple, nontender, no meningeal signs. CARDIOVASCULAR: Regular rate and rhythm without murmurs, gallops, or rubs. RESPIRATORY: Clear to auscultation. Breath sounds equal bilaterally. No wheezes , rales, or rhonchi. GASTROINTESTINAL: Abdomen soft, non-tender, nondistended. No hepato-splenomegaly , or palpable masses. No guarding. MUSCULOSKELETAL: Extremities without clubbing, cyanosis, or edema. No joint tenderness, effusion, or edema noted. No calf tenderness. Negative Homans sign bilaterally. NEUROLOGICAL: Awake and alert. Cranial nerves II through XII intact. Patient with bilateral tremors. Five out of 5 muscle strength in all muscle groups. Halting pattern of speech. Ataxia bilateral upper and lower extremities Laboratory Laboratory Tests Test 09/15/17 19:56 White Blood Count 3.8 Red Blood Count 4.75 Hemoglobin 16.6 Hematocrit 48.0 Mean Corpuscular Volume 101.0 Mean Corpuscular Hemoglobin 35.0 Mean Corpuscular Hemoglobin Concent 34.6 Red Cell Distribution Width 14.4 Platelet Count 51 Mean Platelet Volume 9.3 Neutrophils (%) (Auto) 69.7 Lymphocytes (%) (Auto) 16.1 Monocytes (%) (Auto) 13.6 Eosinophils (%) (Auto) 0.2 Basophils (%) (Auto) 0.4 Neutrophils # (Auto) 2.7 Lymphocytes # (Auto) 0.6 Monocytes # (Auto) 0.5 Eosinophils # (Auto) 0.0 Basophils # (Auto) 0.0 CBC Comment AUTO DIFF Differential Total Cells Counted 100 Neutrophils % (Manual) 70 Band Neutrophils % 7 Lymphocytes % 10 Monocytes % 12 Basophils % 1 Neutrophils # (Manual) 2.9 Differential Comment FINAL DIFF MANUAL Atypical Lymphocytes Platelet Estimate LOW Platelet Morphology Comment ENLARGED Prothrombin Time 10.7 Prothromb Time International Ratio 1.1 Activated Partial Thromboplast Time 30.7 Blood Urea Nitrogen 6 Creatinine 0.82 Random Glucose 158 Total Protein 9.1 Albumin 4.1 Calcium Level 9.1 Magnesium Level 1.7 Alkaline Phosphatase 81 Aspartate Amino Transf (AST/SGOT) 78 Alanine Aminotransferase (ALT/SGPT) 56 Total Bilirubin 0.9 Sodium Level 141 Potassium Level 3.7 Chloride Level 103 Carbon Dioxide Level 26.1 Anion Gap 12 Estimat Glomerular Filtration Rate 100 Ammonia 27 Total Creatine Kinase 150 Creatine Kinase MB 0.6 Troponin I LESS THAN 0.02 B-Type Natriuretic Peptide 160 Lipase 203 Thyroid Stimulating Hormone 3rd Gen 1.910 Result Diagram: 09/15/17195509/15/171955 Caprini VTE Risk Assessment Caprini VTE Risk Assessment: No/Low Risk (score <= 1) Caprini Risk Assessment Model Point Value = 1 Point Value = 2 Point Value = 3 Point Value = 5 Age 41-60 Minor surgery BMI > 25 kg/m2 Swollen legs Varicose veins or History of unexplained or recurrent spontaneous Oral contraceptives or hormone replacement Sepsis (< 1 month) Serious lung disease, including pneumonia (< 1 month) Abnormal pulmonary function Acute myocardial infarction Congestive heart failure (< 1 month) History of inflammatory bowel disease Medical patient at bed rest Age 61-74 Arthroscopic surgery Major open surgery (> 45 min) Laparoscopic surgery (> 45 min) Malignancy Confined to bed (> 72 hours) Immobilizing plaster cast Central venous access Age >= 75 History of VTE Family history of VTE Factor V Leiden Prothrombin [id number] Lupus anticoagulant Anticardiolipin antibodies Elevated serum homocysteine Heparin-induced thrombocytopenia Other congenital or acquired thrombophilia Stroke (< 1 month) Elective arthroplasty Hip, pelvis, or leg fracture Acute spinal cord injury (< 1 month) Prophylaxis Regimen Total Risk Factor Score Risk Level Prophylaxis Regimen 0-1 Low Early ambulation 2 Moderate Order ONE of the following: *Sequential Compression Device (SCD) *Heparin 5000 units SQ BID 3-4 Higher Order ONE of the following medications: *Heparin 5000 units SQ TID *Enoxaparin/Lovenox 40 mg SQ daily (WT < 150 kg, CrCl > 30 mL/min) *Enoxaparin/Lovenox 30 mg SQ daily (WT < 150 kg, CrCl > 10-29 mL/min) *Enoxaparin/Lovenox 30 mg SQ BID (WT < 150 kg, CrCl > 30 mL/min) AND/OR *Sequential Compression Device (SCD) 5 or more Highest Order ONE of the following medications: *Heparin 5000 units SQ TID (Preferred with Epidurals) *Enoxaparin/Lovenox 40 mg SQ daily (WT < 150 kg, CrCl > 30 mL/min) *Enoxaparin/Lovenox 30 mg SQ daily (WT < 150 kg, CrCl > 10-29 mL/min) *Enoxaparin/Lovenox 30 mg SQ BID (WT < 150 kg, CrCl > 30 mL/min) AND *Sequential Compression Device (SCD) Assessment and Plan Assessment and Plan //Acute alcohol withdrawal. = Hypertensive, with bilateral tremors. = CIWA protocol ordered //Nausea and vomiting. Likely patient is hung over. Zofran as needed. //Constipation. Without abdominal pain. Or laxatives. //Chronic alcoholism. Cessation counseling provided. Appreciate case management assistance. Will need to provide with rehab information. //Leukopenia 3.8. Likely secondary to liver disease. Continue to monitor. No sign of infection currently. //Possible aspiration pneumonia Chest x-ray with bilateral perihilar opacification. Due to nausea and vomiting will start Augmentin for aspiration. = Would recommend patient get CT chest as outpatient //Chronic COPD. Continue home medication. //Chronic tobacco abuse. Cessation counseling provided. //GERD. Chronic. Continue home medications. Discussed Condition With Patient, nurse, ED physician. Physician Certification 2 Midnight Certification Type: Admission for Inpatient Services Order for Inpatient Services The services are ordered in accordance with Medicare regulations or non- Medicare payer requirements, as applicable. In the case of services not specified as inpatient-only, they are appropriately provided as inpatient services in accordance with the 2-midnight benchmark. Estimated LOS (days): 2 days is the estimated time the patient will need to remain in the hospital, assuming treatment plan goals are met and no additional complications. Post-Hospital Plan: Not yet determined Jayy Alonzo MD September 16, 2017 02:17
[2017-09-16] MEDS: ONDANSETRON HCL 4 MG/2 ML VIAL IV PUSH PRN ×2 (03:35→12:22)
[2017-09-16 04:13] VITALS: BP 138/78; PULSE 59; RESP 16; TEMP 98.8; O2SAT 98
[2017-09-16] MEDS: AMOXICILLIN/CLAVULANATE K 875 MG TAB PO SCH ×2 (04:19→09:19)
[2017-09-16 05:19] LABS: BILIRUBIN, URINE NEG (NEG); BLOOD, URINE NEG (NEG); GLUCOSE,URINE NEG (NEG); KETONE, URINE 40 mg/dL (NEG); MUCUS URINE FEW /lpf (OCC); NITRITE,URINE NEG (NEG); SQUAMOUS EPITHELIAL CELL URINE 2 /hpf (0-5); URINE COLOR YELLOW (YELLW/STRAW); URINE LEUKOCYTE ESTERASE NEG (NEG)
[2017-09-16 07:33] VITALS: BP 135/67; PULSE 57; RESP 18; TEMP 98.5; O2SAT 96
[2017-09-16] MEDS ORDERED: MULTIVITAMINS/MINERALS THERAPEUTIC TAB PO SCH (09:00)
[2017-09-16] MEDS ORDERED: BUDESONIDE-FORMOTEROL 160/4.5 MCG INHALER INH SCH (09:00)
[2017-09-16] MEDS ORDERED: PANTOPRAZOLE SOD 40 MG DELAYED RELEASE TAB PO SCH (09:00)
[2017-09-16] MEDS ORDERED: FOLIC ACID 1 MG TAB PO SCH (09:00)
[2017-09-16] MEDS ORDERED: SODIUM CHLORIDE 0.9% FLUSH 10 ML FLUSH IV FLUSH SCH (09:00)
[2017-09-16] MEDS ORDERED: THIAMINE HCL 100 MG TAB PO SCH (09:00)
[2017-09-16] MEDS: PREGABALIN 75 MG CAP PO SCH ×2 (09:19→12:28)
--- NOTE | 2017-09-16 09:21 | EKG ---
Date Performed: 09/15/2017 Time Performed: 19:31:25 PTAGE: 51 years EKG: SINUS BRADYCARDIA POSSIBLE RIGHT VENTRICULAR CONDUCTION DELAY TALL T-WAVES, SUGGESTS HYPERK ALEMIA PROLONGED QT INTERVAL ABNORMAL ECG PREVIOUS TRACING : 07/27/2017 18.13 DOCTOR: Kashmir Winslow Interpretating Date/Time 09/16/2017 09:16:00
[2017-09-16 09:33] LABS: AUTOMATED NEUTROPHIL # 2.9 TH/MM3 (1.8-7.7); BASOPHIL % 0.3 % (0.0-2.0); HEMATOCRIT 42.5 % (39.0-51.0); HEMOGLOBIN 14.6 GM/DL (13.0-17.0); LYMPH % 16.5 % (9.0-44.0); LYMPHOCYTE # 0.7 TH/MM3 (1.0-4.8); MEAN CELL VOLUME 101.4 FL (80.0-100.0); MEAN CORPUSCULAR HEMOGLOBIN 34.8 PG (27.0-34.0); MEAN CORPUSCULAR HGB CONC 34.3 % (32.0-36.0); MONO % 12.9 % (0.0-8.0); MONOCYTE # 0.5 TH/MM3 (0-0.9); NEUT % 70.3 % (16.0-70.0); PLATELET COUNT 44 TH/MM3 (150-450); RED BLOOD COUNT 4.19 MIL/MM3 (4.50-5.90); RED CELL DISTRIBUTION WIDTH 14.1 % (11.6-17.2); WHITE BLOOD COUNT 4.2 TH/MM3 (4.0-11.0)
[2017-09-16 10:24] LABS: ALBUMIN 3.4 GM/DL (3.4-5.0); AST (GOT) 50 U/L (15-37); BICARBONATE 26.4 MEQ/L (21.0-32.0); BLOOD UREA NITROGEN 8 MG/DL (7-18); CALCIUM 8.5 MG/DL (8.5-10.1); CHLORIDE 107 MEQ/L (98-107); CREATININE 0.69 MG/DL (0.60-1.30); GLOMERULAR FILTRATION RATE 122 ML/MIN (>89); GLUCOSE,RANDOM 108 MG/DL (74-106); SODIUM (NA) 143 MEQ/L (136-145)
[2017-09-16 10:30] LABS: ALKALINE PHOSPHATASE 66 U/L (45-117); ALT (GPT) 45 U/L (12-78); TOTAL BILIRUBIN ADULT 0.6 MG/DL (0.2-1.0); TOTAL PROTEIN 7.8 GM/DL (6.4-8.2)
[2017-09-16 11:28] VITALS: BP 130/71; PULSE 68; RESP 19; TEMP 98; O2SAT 94
[2017-09-16] MEDS ORDERED: chlordiazePOXIDE 25 MG CAP PO PRN (12:00)
--- NOTE | 2017-09-16 12:22 | HHI.PR ---
Subjective Remarks Follow-up alcohol withdrawal September 16, 2017-patient seen and examined, severe bilateral hand tremors. Patient is alert and oriented 2. CIWA score 8 Objective Vitals Vital Signs Date Time Temp Pulse Resp B/P (MAP) Pulse Ox O2 Delivery O2 Flow Rate FiO2 09/16/17 11:28 98.0 68 19 130/71 (90) 94 09/16/17 07:33 98.5 57 18 135/67 (89) 96 09/16/17 04:13 98.8 59 16 138/78 (98) 98 09/15/17 23:34 98.8 84 18 170/86 (114) 97 09/15/17 20:30 60 155/87 (109) 97 Room Air 09/15/17 20:30 60 155/87 (109) 97 Room Air 09/15/17 19:25 98.3 54 20 172/97 (122) 97 I/O 09/15/17 09/15/17 09/15/17 09/16/17 09/16/17 09/16/17 07:00 15:00 23:00 07:00 15:00 23:00 Intake Total 1100 ml Balance 1100 ml Intake IV Total 1100 ml # Voids 1 # Bowel Movements 1 Result Diagram: 09/16/17 0840 09/16/17 0840 Imaging Last Impressions Head CT 09/15/171931 Signed Impressions: Service Date/Time: Friday, September 15, 2017 20:14 - CONCLUSION: No acute disease. Pino Kenny MD Chest X-Ray 09/15/171931 Signed Impressions: Service Date/Time: Friday, September 15, 2017 19:33 - CONCLUSION: Suspected mild left perihilar consolidation. Pino Kenny MD Cervical Spine CT 09/15/171931 Signed Impressions: Service Date/Time: Friday, September 15, 2017 20:14 - CONCLUSION: 1. No acute abnormality seen. 2. Chronic degenerative change and disc changes as described above. Pino Kenny MD Objective Remarks GENERAL: NAD with bilateral hands tremors SKIN: Warm and dry. HEAD: Normocephalic. EYES: No scleral icterus. No injection or drainage. NECK: Supple, trachea midline. No JVD or lymphadenopathy. CARDIOVASCULAR: Regular rate and rhythm without murmurs, gallops, or rubs. RESPIRATORY: Breath sounds equal bilaterally. No accessory muscle use. GASTROINTESTINAL: Abdomen soft, non-tender, nondistended. MUSCULOSKELETAL: No cyanosis, or edema. BACK: Nontender without obvious deformity. No CVA tenderness. A/P Problem List: (1) Alcohol withdrawal ICD Code: F10.239 - Alcohol dependence with withdrawal, unspecified Status: Acute Assessment and Plan 51-year-old man with Acute alcohol withdrawal. Currently on rally pack, CIWA protocol and add Librium Nausea and vomiting. Resolved Constipation. Continue with laxative as needed Chronic alcoholism. Cessation counseling provided. Appreciate case management assistance. Leukopenia 3.8 on admission, however now resolved Likely secondary to liver disease. Continue to monitor. No sign of infection currently. Possible aspiration pneumonia Chest x-ray with bilateral perihilar opacification. Continue Augmentin for aspiration. Recommend patient get CT chest as outpatient Chronic COPD. Continue home medication. Chronic tobacco abuse. Cessation counseling provided. GERD. Chronic. Continue home medications. Wing Alvarado MD September 16, 2017 12:22
[2017-09-16] MEDS ORDERED: AUGM875T3 PO (12:35)
[2017-09-16] MEDS ORDERED: chlordiazePOXIDE 25 MG CAP PO SCH (13:00)
== END 2017-09-16 13:46 | disposition left against medical advice (07) | DRG 894 ==
LOC: NEPE 19:19 → NEDA 22:22 → OBSVTOIN 22:47 → NEPHCDU 23:31
PROVIDERS: ADMIT Hospitalist; ATTEND Hospitalist
DX: F10.230 Alcohol dependence with withdrawal, uncomplicated (principal); J69.0 Pneumonitis due to inhalation of food and vomit; S09.90XA Unspecified injury of head, initial encounter; F20.9 Schizophrenia, unspecified; G62.1 Alcoholic polyneuropathy; I15.8 Other secondary hypertension; R00.1 Bradycardia, unspecified; R26.2 Difficulty in walking, not elsewhere classified; J44.9 Chronic obstructive pulmonary disease, unspecified; G47.30 Sleep apnea, unspecified; G47.00 Insomnia, unspecified; K59.00 Constipation, unspecified; D72.818 Other decreased white blood cell count; K21.9 Gastro-esophageal reflux disease without esophagitis; K76.9 Liver disease, unspecified; R11.2 Nausea with vomiting, unspecified; M50.321 Other cervical disc degeneration at C4-C5 level; F31.9 Bipolar disorder, unspecified; F41.9 Anxiety disorder, unspecified; W01.0XXA Fall on same level from slipping, tripping and stumbling without subsequent striking against object, initial encounter; Y92.002 Bathroom of unspecified non-institutional (private) residence as the place of occurrence of the external cause; Z72.0 Tobacco use; Z88.5 Allergy status to narcotic agent; Z91.030 Bee allergy status; Z91.041 Radiographic dye allergy status; Z91.013 Allergy to seafood
CPT/HCPCS: 70450; 71045; 72125; 80053; 80307; 81001; 82140; 82550; 82552; 82607; 82948; 83690; 83735; 83880; 84443; 84484; 85007; 85025; 85027; 85610; 85730; 93005; J2060; J2405; J3411; J3480; J7030; J7042

== ENCOUNTER 2018-03-26 05:56 | Observation (INO) ==
[2018-03-26] MEDS ORDERED: Chlorhexidine Gluconate 2% 1 Pack (2 Cloths) TOPICAL ONE (06:30)
[2018-03-26] MEDS ORDERED: Sodium Chlor 0.9% Inj 500 ML IV.CONT ONE (06:30)
[2018-03-26] MEDS ORDERED: Metoprolol Tartrate 25 MG Tablet PO ONE (06:30)
[2018-03-26] MEDS ORDERED: Gelatin Size 100 Topical Foam ONE (06:58)
[2018-03-26] MEDS ORDERED: ceFAZolin 1 GM Premix Inj 2 GM/100 ML FROZ.PIGGY IV.SIG ONE (06:58)
[2018-03-26] MEDS ORDERED: Thrombin Topical Soln 5,000 UNIT Vial TOPICAL ONE (06:58)
[2018-03-26] MEDS ORDERED: Vancomycin Inj 1,000 MG in Sodium Chlor 0.9% Inj 250 ML IV.SIG SCH (07:00)
[2018-03-26] MEDS: Sod Chloride 0.9% Inj 1,000 ML IV.SIG SCH ×2 (07:06→12:18)
[2018-03-26] MEDS ORDERED: HYDROmorphone PF Inj 2 MG/ML Vial ONE (07:16)
[2018-03-26] MEDS ORDERED: fentaNYL Citrate Inj 250 MCG/5 ML Ampul ONE (07:17)
[2018-03-26] MEDS ORDERED: Artificial Tears Opth Oint 3.5 GM Tube ONE (07:17)
[2018-03-26] MEDS ORDERED: Propofol Inj 500 MG/50 ML Vial ONE (07:17)
[2018-03-26] MEDS ORDERED: Phenylephrine/NS 1000 MCG/10ML Syringe IV.PUSH ONE (08:12)
[2018-03-26] MEDS ORDERED: Glycopyrrolate Inj 1 MG/5 ML Syringe IV.PUSH ONE (08:12)
[2018-03-26] MEDS ORDERED: Lidocaine PF 1% Inj 5 ML Syringe OTHER ONE (08:12)
[2018-03-26] MEDS ORDERED: Bisacodyl 10 MG Supp RECTAL PRN (11:48)
--- NOTE | 2018-03-26 12:05 | XR ---
EXAM DATE: 03/26/2018 12:00 PM EST AGE/SEX: 52 years / Male INDICATIONS: Post-op C5-C6, C6-C7 anterior cervical fusion. CLINICAL DATA: This is the patient's initial encounter. Patient reports that signs and symptoms have been present for 1 day and indicates a pain score of Nonresponsive. MEDICAL/SURGICAL HISTORY: Non-responsive. Non-responsive. COMPARISON: [facility] [place], [facility], 06/22/2017. . FINDINGS: Status post anterior cervical fusion from C3 C5-C7. Anatomic alignment. CONCLUSION: Anatomic alignment Electronically signed by: Toby Kim MD 03/26/2018 12:04 PM EST
[2018-03-26] MEDS ORDERED: *morphine SULFATE 4 MG/ML PERIprocedure ONLY ONE (12:32)
--- NOTE | 2018-03-26 16:09 | P.OP ---
Preoperative Diagnosis: C5-6, and C6-7 disk herniations Postoperative Diagnosis: C5-6, and C6-7 disk herniations Date of procedure: 03/26/18 Procedure: C5-6, C6-7 anterior cervical discectomy, interbody arthodhesis using PEEK cage filled with autologous bone graft, Simplicity plate and screws. Anesthesia: AGNES Surgeon: Ashwin Cohen MD Milk Tester: ,BRANDO HUERTA Pathology: none sent Operation and Findings: INDICATIONS FOR THE PROCEDURE Mr Menjivar is a 52 year-old female who presented with intractable neck pain and clinical evidence of C6 and C7 upper extremity radiculopathy. He was found to have significant spondylosis with stenosis. He has failed maximum nonsurgical management including multiple modalities of conservative treatment as well as pain management interventions by an interventional pain specialist. A surgical decompression and arthrodhesis were indicated. The [id number] details of the procedure, indications, alternatives, risks and potential complications were fully discussed with the patient. The patient fully understood. All The questions were answered. No guarantees were given. The patient voiced requesting the procedure and provided informed consents. The patient was offered the alternative of delaying the procedure and continuing with nonsurgical management. DETAILS OF THE SURGICAL PROCEDURE After the induction of general anesthesia, endotracheal intubation was performed. A Berkowitz catheter, bilateral ARABELLA hose, and sequential compression devices were placed and kept throughout the procedure. Placement of electrodes for neurophysiological monitoring of the somato sensorial evoked potentials. motor evoked potentials, and EMG as well as laryngeal nerve monitoring was achieved. The patient was positioned supine on a Dillon table with the head over a gel doughnut. All pressure points were carefully padded with eggcrate mattress. The eyes were tapped shut after ointment was applied by the anesthesiologist to prevent corneal abrasion. A Savannah hugger was placed over the exposed lower body to maintain control of the core body temperature. The electrophysiological team placed the needles and electrodes in their proper location and baseline SSEP's and motor evoked potentials were registered prior and after positioning and endotracheal intubation. The anterior cervical region was prepped and draped in the usual sterile fashion. A localizing x-ray was performed with a C-arm. The surgical procedure was performed in several steps as follow: SURGICAL APPROACH A skin incision was made along the inferior cervical crease with a #10 blade. The dissection was carried out through the platysma exposing the sternocleidomastoid muscle. The cervical spine was approached following the fascial layers of the neck just medial to the anterior border of the sternocleidomastoid and carotid sheath by a combination of sharp and dull dissection. The omohyoid muscle was identified and carefully dissected laterally and the deep cervical fascia was carefully opened. The longus colli muscles were retracted to each side of the midline. A marker was placed at the disc space C5-6 and a cross-table lateral x-ray performed with a C-arm. SURGICAL DECOMPRESSION In order to decompress the anterior surface of the spinal cord it was necessary to preform a microsurgical resection of the disk at C5-6 and C6-7. At this point in the procedure the operating microscope was draped in the usual sterile fashion and brought to the field. The rest of the surgical procedure was performed using microdissection technique with the exception of the closure. Under the operative microscopic, a self-retaining retractor was placed underneath the longus colli muscle. Anterior osteophite spurs werte carefully removed with the Leksell. The annulus at C5-6 and C6-7 were incised with a #15 blade and microdiscectomy was then carefully carried out using angled curets and pituitary forceps. There were osteophitic/disk herniation complexes at C5-6 and C6-7 causing mass effect and compression of the dural sac and nerve roots. The posterior longitudinal ligament was then elevated with an angled curet and incised with a 15 bladed knife. A careful resection of the posterior longitudinal ligament was carried out using a thin footplate 2 mm Kerrison. A nerve hook was used to assess the epidural space behind the vertebral bodies C5 , C6, and C7 in search for residual disk fragments. The margins of the posterior endplates at C5-6 and C6-7 were carefully drilled and undercut with a TPS drill under high magnification. The decompression was then carried out laterally, and a bilateral foraminotomy was performed with a 2mm thin foot Kerrison. Then the vertebral bodies above and below the disk space were undercut using a 2 mm thin foot Kerrison. The epidural space was the systematically assessed with a nerve hook in search for disk fragments. An excellent decompression was achieved in both, the dural sac and bilateral exiting nerve roots. The incision was then irrigated with a large amount of antibiotic solution INTERBODY ARTHRODHESIS In order to avoid collapse of the disk space which would result in bilateral foraminal stenosis, and to increase the chances of a successful fusion, it was necessary to place an interbody cage filled with autologous bone. At this point of the procedure, the superior and inferior endplates were then evenly decorticated with a TPS drill. The use of a drill in combination with a curette allowed me to systematically remove the cartilaginous endplates, exposing healthy bone for the interbody arthrodesis. Sixteen millimeters distraction pins were then placed at the vertebral bodies adjacent to the disk space, and gentle distraction was applied. The size of the interbody cage was then assessed using different size spacers, and a rasp was used to ensure no residual cartilage. A PEEK cage of the appropriate size was selected, and the interbody arthrodesis was then preformed by carefully impacting a PEEK cage filled with autologous bone graft to the disc spaces C5-6 and C6-7. An excellent position of the cage was achieved. This was was confirmed anatomically by feeling the space posterior to the implant and distance to the anterior surface of the dural sac. Radiological confirmation of the position was performed with a cross lateral xray performed with the C-arm. INTERNAL INSTRUMENTAL FIXATION Once that the interbody device was in an appropriate position, it was necessary to stabilize the spine with anterior instrumentation. Anterior instrumentation has demonstrated to increase the rate of fusion, accelerate the patient's recovery, and decrease the rate of failed interbody grafts. At this point of the procedure, the distance between the vertebral bodies was carefully measures, and a Simplicity plate was brought to the field and presented in front of the vertebral bodies C5, C6, and C7. Assisted Living Associate holes were then drilled using the TPS drill, and the plate was then secured to the spine using self-drilling, self-tapping screws. Initially, the inferior right screw was inserted, followed by placement of the contralateral upper screw. The remanding screws were sequentially placed in a contra-lateral fashion. A proper purchase was achieved with all screws and the position of the cage, plate and screws, and alignment of the spine was assessed anatomically by direct visualization, and radiologically by performing a cross lateral xray of the cervical spine with the C-arm. CLOSURE The incision was irrigated with several liters of antibiotic solution. Hemostasis was achieved with a bipolar. The screws were locked to prevent backing out. A 7 mm Dillon-Zapata drain was left in the prevertebral space and externalized through a separate stab incision. The incision was then closed in layers. 3-0 Vicryl with interrupted sutures was used to close the platysma and subcutaneous tissue. The skin was closed with 4-0 running subcuticular Vicryl and glue was applied to the skin. The drain was secured with a 3-0 nylon. At the end of the procedure the sponge, needle and instrument counts were all correct. The estimated blood loss was less than 70-80 cc. No blood transfusion was given. No intraoperative complications occurred. The patient received prophylactic antibiotics. The patient was then extubated and transferred to the recovery room in stable condition.
[2018-03-26] MEDS: ceFAZolin 2 GM Premix Inj 2 GM/50 ML PIGGYBACK IV.SIG SCH (18:02)
--- NOTE | 2018-03-26 18:33 | P.DS ---
Date of admission: 03/26/18 12:06 Primary care physician: No Primary Care Physician Brief History from admission: Mr Menjivar is a 52 year-old female who presented with intractable neck pain and clinical evidence of C6 and C7 upper extremity radiculopathy. He was found to have significant spondylosis with stenosis. He has failed maximum nonsurgical management including multiple modalities of conservative treatment as well as pain management interventions by an interventional pain specialist. A surgical decompression and arthrodhesis were indicated. DS: Medications - Discharge Medications Prescriptions: hydrocodone-acetaminophen 1 tab PO Q4H PRN #18 tab PRN Reason: Pain Scale 1 To 5 DS: Summary Hospital Course: Mr. Menjivar underwent C5-6, C6-7 anterior cervical discectomy, interbody arthodhesis using PEEK cage filled with autologous bone graft, Simplicity plate and screws for C5-6, and C6-7 disk herniations on 03/26/18. His surgery went well without complications. He was discharged home in stable conditions. - Time Spent with Patient Total time spent providing and/or coordinating discharge services: Less than 30 minutes - Quality: VTE Deep Vein Thrombosis/Pulmonary Embolism Present on Admission: No Exam Vital signs: Vital Signs 03/26/18 06:54 03/26/18 12:00 03/26/18 12:15 Temperature 98.6 F 97.7 F Pulse Rate 71 92 H 84 Respiratory Rate 18 14 14 Blood Pressure 121/79 147/87 H 147/86 H Pulse Oximetry 96 99 99 03/26/18 12:30 03/26/18 12:45 03/26/18 13:00 Temperature Pulse Rate 81 73 67 Respiratory Rate 14 14 13 Blood Pressure 151/82 H 137/82 137/81 Pulse Oximetry 99 99 98 03/26/18 14:00 03/26/18 16:00 Temperature 98.5 F 98.2 F Pulse Rate 66 70 Respiratory Rate 14 20 Blood Pressure 134/80 149/78 H Pulse Oximetry 98 95 Intake & Output 03/25/18 03/26/18 03/26/18 18:59 06:59 18:59 Intake Total 2360 / 2360 Output Total 2685 / 2685 Balance -325 / -325 Weight 71.5 kg Intake: IV 30 / 30 NS Inj 1,000 ML @ 30 mls/hr IV. 30 / 30 SIG .Q24H [facility] Rx#:[id number] Oral 30 / 30 Anesthesia Amount 2300 / 2300 Output: Estimated Blood Loss 80 / 80 Urine Amount (Catheter) 2600 / 2600 Coude 2600 / 2600 Wound Drainage 5 / 5 # 1 Anterior Neck Sy 5 / 5 Other: Weight On Admission 71.5 kg Results Procedures completed during hospitalization: C5-6, C6-7 anterior cervical discectomy, interbody arthodhesis using PEEK cage filled with autologous bone graft, Simplicity plate and screws. Labs on day of discharge: Labs from last 24 hours 03/26/18 06:30 Nasal Screen MRSA (PCR) Not detected - Impressions ITS Impressions Cervical Spine X-Ray 03/26/18 00:00 CONCLUSION: Anatomic alignment Discharge Plan - Discharge Disposition Patient Disposition: Discharge Home - Discharge Condition Condition: Stable - Discharge Order Discharge Orders: Discharge Order (Routine); Ordered 03/27/18 Ordered By: Tiffany Hearn - Physicians Team Primary Care Provider: Primary Care Miladys Hernandez Attending Provider: Ashwin Cohen - Rxs /Orders / Referrals /Forms Prescriptions: New hydrocodone-acetaminophen 10-325 mg Tablet 1 tab PO Q4H PRN (Reason: Pain Scale 1 To 5) Qty: 18 RF: 0 Continue acetaminophen-codeine 300-30 mg Tablet 1 tab PO Q6H PRN (Reason: Pain) albuterol sulfate 0.63 mg/3 mL Solution For Nebulization 0.63 mg INHALATION QID PRN (Reason: Respiratory Distress) budesonide-formoterol [Symbicort] 80-4.5 mcg/actuation Hfa Aerosol Inhaler 2 puff INHALATION BID fenofibrate nanocrystallized 48 mg Tablet 48 mg PO DAILY gabapentin 300 mg Capsule 300 mg PO TID ipratropium bromide 0.02 % Solution 0.025 mg/kg INHALATION Q8H Referrals: Primary Care Mliadys Hernandez [Primary Care Provider] - See Instructions - Discharge Instructions Patient Printed Instructions: Hydrocodone/Acetaminophen (By mouth), Anterior Cervical Discectomy (DC), Laminectomy (DC)
[2018-03-26] MEDS: Senna/Docusate Sodium 8.6/50 MG Tablet PO SCH (21:47)
[2018-03-26] MEDS ORDERED: fentaNYL Citrate Inj 100 MCG/2 ML Ampul ONE (22:14)
[2018-03-27] MEDS: ceFAZolin 2 GM Premix Inj 2 GM/50 ML PIGGYBACK IV.SIG SCH ×2 (01:44→09:07)
[2018-03-27] MEDS: Sod Chloride 0.9% Inj 1,000 ML IV.SIG SCH (07:07)
[2018-03-27 08:08] VITALS: BP 129/75; PULSE 58; TEMP 98.4
[2018-03-27] MEDS: Senna/Docusate Sodium 8.6/50 MG Tablet PO SCH (08:46)
[2018-03-27 09:50] VITALS: O2SAT 96
[2018-03-27 11:02] VITALS: RESP 16
== END 2018-03-27 11:37 | disposition home or self-care (01) ==
LOC: HSDC 05:56 → HSDI 05:56 → N06 14:17
PROVIDERS: ADMIT Neurological Surgery; ATTEND Neurological Surgery